=== PATIENT | male | born 1950 | race Caucasian/White ===

== ENCOUNTER 2020-02-13 11:01 | Outpatient (CLI) | payer MEDICARE, SELFPAY ==
--- NOTE | 2020-02-13 11:14 | XR_ITS ---
WS: [id number] KUB, 02/13/2020 Clinical Data: KIDNEY STONE Comparison: KUB, 05/20/2019 Findings: No abnormal intraabdominal masses or calcifications are seen. There is no dilatated small bowel or ev idence of obstruction. The aortobiiliac stent graft is noted. Bladder calculi are no longer present. There are no renal calc anirudh seen. XR/XR KUB [id number] Impression: Negative KUB.
== END 2020-02-13 11:02 | disposition home or self-care (01) ==
LOC: RAD 11:07 → RADWPI 11:08
PROVIDERS: Family Provider Family Medicine; PCP Nurse Practitioner Family; Visit Provider Urology
DX: N21.0 Calculus in bladder (principal)
CPT/HCPCS: 74018; 81001

== ENCOUNTER 2020-10-11 09:16 | Outpatient (CLI) | payer MEDICARE, SELFPAY ==
--- NOTE | 2020-10-11 09:30 | XR_ITS ---
WS: [id number] ABDOMEN: SUPINE FILM HISTORY: HX OF BLADDER STONE COMPARISON: 02/13/2020 Normal bowel gas pattern. Abdominal aortic and iliac artery stent graft is noted. Unchanged in positi on. Possible bladder calcification measuring 5.3 mm projecting over the coccyx. Right kidney: No renal or ureteral stone identified. Left kidney: No renal or ureteral stone identified. XR/XR KUB [id number] IMPRESSION: Possible 5.3 mm bladder calcification projecting over the coccyx.
== END 2020-10-11 09:17 | disposition home or self-care (01) ==
LOC: RAD 09:20
PROVIDERS: PCP Nurse Practitioner Family; Visit Provider Urology
DX: Z87.448 Personal history of other diseases of urinary system (principal)
CPT/HCPCS: 74018; 81003

== ENCOUNTER 2020-11-10 09:46 | Emergency (ER) | payer MEDICARE, SELFPAY ==
[2020-11-10 09:47] VITALS: BP 119/73; PULSE 66; RESP 18; TEMP 36.8; O2SAT 95; BMI 26.4
--- NOTE | 2020-11-10 09:58 | XR_ITS ---
WS: [id number] PORTABLE CHEST HISTORY: chest pain COMPARISON: None available. Marked pulmonary hyperexpansion. Large bullous changes in the upper lung correa. Crowding of the lung markings due to bullous disease in the lower lung correa. No dense consolidation or pneumonia. No pn eumothorax. No pleural effusion. Cardiac size: Normal. Mediastinum/Aorta: Mild atherosclerosis aorta. No osseous abnormality seen. XR/XR chest 1V portable [id number] IMPRESSION: Chronic bullous emphysematous disease. No pneumonia.
--- NOTE | 2020-11-10 09:58 | ECG_ITS ---
[facility] Test Date: 2020-11-10 Pat Name: Ladarius Lai Department: Room: Gender: Male Assistance Representative: : 1950 Requested By: Mohsen Olivares Order Number: [id number] Knox MD: Hortensia Tiwari M.D. Measurements Intervals [place] Rate: 64 P: 71 CT: 138 QRS: 58 QRSD: 89 T: 57 QT: 407 QTc: 423 Interpretive Statements SINUS RHYTHM No previous ECG available for comparison Electronically Signed On 11-10-2020 21:25:54 WARP BLEACHING VAT TENDER by Hortensia Tiwari M.D. [id number]
--- NOTE | 2020-11-10 09:59 | ED_ITS ---
HPI - Chest Pain General: Chief Complaint: Chest Pain Stated Complaint: CHEST PAIN, EXTREMITY PAIN Time Seen by Provider: 11/10/20 09:57 Source: patient Mode of arrival: ambulatory Limitations: no limitations History of Present Illness: HPI narrative: Patient comes in today with extremity pain. Patient reports that starting this morning when he went to get up he had increased pain going down his left leg. Patient has a history of back pain. Patient is also had a history of coronary artery disease, BPH, and hematuria. Patient does not complain of any chest pain at this time. Patient appears well. Patient has had stents placed for coronary artery disease. Patient also had a procedure done on his left carotid. Review of Systems General: Reports: 10 or more systems reviewed and unremarkable except in HPI and below Musc: Reports: other (Pain radiating down left leg.) [facility] ED PFSH: Medical History (Updated 11/10/20 @ 13:30 by NEHEMIAS Parsons) Acute cystitis Bladder stone BPH with obstruction/lower urinary tract symptoms Gross hematuria Urinary retention Surgical History Bladder calculi CYSTOLITHOLAPAXY H/O heart artery stent Family History Mother , AT AGE 82 ALZHEIMERS Alzheimer's dementia Father , AT AGE 82 OLD AGE No problems noted. Social History Smoking and tobacco status: current some day smoker Alcohol intake: current Alcohol intake frequency: few times a month Adopted: No Caregiver/support person: No Lives independently: No Household members: spouse Marital status: Current occupational status: retired History of recent travel: No Physical Exam Const: COMMON NORMALS: no acute distress and patient oriented x3 GENERAL APPEARANCE: cooperative HENMT: COMMON NORMALS: normocephalic and Normal external nose present HEAD & SCALP: normal to inspection and normocephalic NOSE: Normal external nose present MOUTH: Normal oral and palatal mucosa present Eye: GENERAL EYE: appearance normal, both eyes and all related structures Neck/C-Spine: COMMON NORMALS: full ROM Chest: COMMONS NORMALS: normal inspection of the chest Resp: COMMON NORMALS: normal respiratory effort EFFORT & INSPECTION: Yes able to speak in complete sentences Cardio: COMMON NORMALS: regular rate and regular rhythm RATE: regular rate RHYTHM: regular rhythm GI: COMMON NORMALS: non-tender Back/Pelvis: COMMON NORMALS: thoracic and lumbar spine normal to inspection Extremity: COMMON NORMALS: normal to inspection Neuro: COMMON NORMALS: patient oriented x3 and moves all extremities Psych: COMMON NORMALS: mental status grossly normal and cooperative Skin: COMMON NORMALS: no rashes or lesions noted GENERAL SKIN EXAM: no rashes or lesions noted Course ED course: 1206. Patient resting well reports some pain to the left knee. P atient reports pain exacerbates with flexion of the knee. Distal pulses are intact. We do note some anemia on the patient's lab work with some mild renal dysfunction. Patient does have a history of an aortic aneurysm that had a leak with repair 4 years ago. Patient and spouse is concerned that it may be leaking again. We will scan with a CTA of the chest abdomen and pelvis for further visualization and evaluation of aneurysm. Vital Signs: Vital signs: Vital Signs Temperature 98.2 F 11/10/20 09:47 Pulse Rate 60 11/10/20 13:12 Respiratory Rate 16 11/10/20 13:12 Blood Pressure 128/62 11/10/20 13:12 Pulse Oximetry 96 11/10/20 13:12 MDM - Chest Pain MDM Narrative: Medical decision making narrative: Patient comes in today for complaints of general body aches and pain. Patient also complains of weakness. On exam patient has normal range of motion of extremities. Patient does have some soreness in his left lower extremity. Pulses are intact bilaterally. Skin is warm and dry. Vital signs are normal. Patient does have a history of coronary artery disease, aortic aneurysm, BPH, and cystitis. Differential diagnosis includes urinary tract infection, ACS, sepsis, musculoskeletal pain, leaking aneurysm. CTA of the chest abdomen pelvis noted no changes from prior exam in April 2019. Urinalysis showed a significant amount of red blood cells and white blood cells in the urine. CBC showed anemia at 8.3 and 25.4, with thrombocytopenia with platelets of 38 and mild leukopenia with white blood cells of 3.9. Patient will need to follow with hematology for further evaluation and treatment. Case management request was placed, patient was agreeable to referral. Patient will follow up with Dr. Clarke regarding his urinary tract infection. Lab Data: Labs: Lab Results 11/10/20 11/10/2011/10/20 Range/Units 08:30 08:30 08:30 WBC Cancelled Corrected WBC Cancelled RBC Cancelled Hgb Cancelled Hct Cancelled MCV Cancelled MCH Cancelled MCHC Cancelled RDW Cancelled Plt Count Cancelled MPV Cancelled Gran % Cancelled Neut % (Auto) Cancelled Lymph % (Auto) Cancelled Davison % (Auto) Cancelled Eos % (Auto) Cancelled Baso % (Auto) Cancelled Neut # (Auto) Cancelled Lymph # (Auto) Cancelled Davison # (Auto) Cancelled Eos # (Auto) Cancelled Baso # (Auto) Cancelled Absolute Gran (aut o) Cancelled Nucleated RBC % (a uto) Cancelled Nucleated RBCs # Cancelled Sodium 139 (136-145) mmol/L Potassium 4.1 (3.5-5.1) mmol/L Chloride 105 (98-107) mmol/L Carbon Dioxide 21 L (22-29) mmol/L Anion Gap 17.1 (5-19) BUN 25 H (8-23) mg/dL Creatinine 1.3 H (0.7-1.2) mg/dL GFR Calculation Not Reportable Glucose 105 (65-115) mg/dL Calculated Osmolal ity 293 (285-295) mOsm/k g Lactic Acid (0.5-2.2) mmol/L Calcium 8.6 (8.5-10.5) mg/dL Magnesium 1.9 (1.7-2.3) mg/dL Total Bilirubin 0.7 (0.15-1.2) mg/dL AST 10 (0-40) U/L ALT 9 (0-41) U/L Alkaline Phosphata se 78 (40-130) IU/L Troponin T Gen 5 n g/L 34 H (0-15) ng/L Troponin T 120 Min [place] (0-15) ng/L Delta Troponin T (0-10) ABS# Total Protein 6.9 (6.6-8.7) g/dL Albumin 3.9 (3.5-5.2) g/dL Globulin 3.0 (1.3-4.6) g/dL Urine Color (Yellow) Urine Appearance (CLEAR) Urine pH (5-7) Ur Specific Gravit y (1.005-1.030) Urine Protein (Negative) Urine Glucose (UA) (Normal) Urine Ketones (Negative) Urine Blood (Negative) Urine Nitrate (Negative) Urine Bilirubin (Negative) Urine Urobilinogen (Negative) mg/dL Ur Leukocyte Sayda ase (Negative) Urine RBC (0-2) /hpf Urine WBC (0-5) /hpf Ur Squamous Epith Cells (0-5) /hpf Amorphous Sediment Urine Bacteria (NONE) /hpf Urine Mucus /hpf 11/10/20 11/10/20 11/10/20 Range/Units 11:20 11:40 11:40 WBC 3.9 L Corrected WBC RBC 2.57 L Hgb 8.3 L Hct 25.4 L MCV 98.8 H MCH 32.3 MCHC 32.7 RDW 18.3 H Plt Count 38 L MPV Gran % Neut % (Auto) 30.1 Lymph % (Auto) 44.2 Davison % (Auto) 24.4 Eos % (Auto) 0.3 Baso % (Auto) 1.0 Neut # (Auto) 1.17 L Lymph # (Auto) 1.7 Davison # (Auto) 1.0 H Eos # (Auto) 0.0 Baso # (Auto) 0.0 Absolute Gran (aut o) Nucleated RBC % (a uto) 0 Nucleated RBCs # 0.0 Sodium (136-145) mmol/L Potassium (3.5-5.1) mmol/L Chloride (98-107) mmol/L Carbon Dioxide (22-29) mmol/L Anion Gap (5-19) BUN (8-23) mg/dL Creatinine (0.7-1.2) mg/dL GFR Calculation Glucose (65-115) mg/dL Calculated Osmolal ity (285-295) mOsm/k g Lactic Acid (0.5-2.2) mmol/L Calcium (8.5-10.5) mg/dL Magnesium (1.7-2.3) mg/dL Total Bilirubin (0.15-1.2) mg/dL AST (0-40) U/L ALT (0-41) U/L Alkaline Phosphata se (40-130) IU/L Troponin T Gen 5 n g/L (0-15) ng/L Troponin T 120 Min [place] 33.94 H (0-15) ng/L Delta Troponin T -0.06 L (0-10) ABS# Total Protein (6.6-8.7) g/dL Albumin (3.5-5.2) g/dL Globulin (1.3-4.6) g/dL Urine Color Yellow (Yellow) Urine Appearance Sl hazy (CLEAR) Urine pH 5.0 (5-7) Ur Specific Gravit y 1.020 (1.005-1.030) Urine Protein Neg (Negative) Urine Glucose (UA) Norm (Normal) Urine Ketones Negative (Negative) Urine Blood Neg (Negative) Urine Nitrate Negative (Negative) Urine Bilirubin 1+ H (Negative) Urine Urobilinogen 1 H (Negative) mg/dL Ur Leukocyte Sayda ase 1+ H (Negative) Urine RBC 0-4 H (0-2) /hpf Urine WBC 25-40 H (0-5) /hpf Ur Squamous Epith Cells 0-4 H (0-5) /hpf Amorphous Sediment Not Reportable Urine Bacteria 1+ H (NONE) /hpf Urine Mucus Trace /hpf 11/10/ Range/Units 12:35 WBC Corrected WBC RBC Hgb Hct MCV MCH MCHC RDW Plt Count MPV Gran % Neut % (Auto) Lymph % (Auto) Davison % (Auto) Eos % (Auto) Baso % (Auto) Neut # (Auto) Lymph # (Auto) Davison # (Auto) Eos # (Auto) Baso # (Auto) Absolute Gran (aut o) Nucleated RBC % (a uto) Nucleated RBCs # Sodium (136-145) mmol/L Potassium (3.5-5.1) mmol/L Chloride (98-107) mmol/L Carbon Dioxide (22-29) mmol/L Anion Gap (5-19) BUN (8-23) mg/dL Creatinine (0.7-1.2) mg/dL GFR Calculation Glucose (65-115) mg/dL Calculated Osmolal ity (285-295) mOsm/k g Lactic Acid 0.9 (0.5-2.2) mmol/L Calcium (8.5-10.5) mg/dL Magnesium (1.7-2.3) mg/dL Total Bilirubin (0.15-1.2) mg/dL AST (0-40) U/L ALT (0-41) U/L Alkaline Phosphata se (40-130) IU/L Troponin T Gen 5 n g/L (0-15) ng/L Troponin T 120 Min [place] (0-15) ng/L Delta Troponin T (0-10) ABS# Total Protein (6.6-8.7) g/dL Albumin (3.5-5.2) g/dL Globulin (1.3-4.6) g/dL Urine Color (Yellow) Urine Appearance (CLEAR) Urine pH (5-7) Ur Specific Gravit y (1.005-1.030) Urine Protein (Negative) Urine Glucose (UA) (Normal) Urine Ketones (Negative) Urine Blood (Negative) Urine Nitrate (Negative) Urine Bilirubin (Negative) Urine Urobilinogen (Negative) mg/dL Ur Leukocyte Sayda ase (Negative) Urine RBC (0-2) /hpf Urine WBC (0-5) /hpf Ur Squamous Epith Cells (0-5) /hpf Amorphous Sediment Urine Bacteria (NONE) /hpf Urine Mucus /hpf EKG Data^: EKG 1: Attestation: I personally reviewed and interpreted this EKG as follows: (1003, normal sinus rhythm, rate 64, no ectopy, no ST elevation, no prior exam available at this time.) EKG 2: Attestation: I personally reviewed and interpreted this EKG as follows: (1235, normal sinus rhythm, regular rate at 60 bpm, no ectopy, no ST elevation, no change from prior exam.) Discharge Plan Discharge Patient Disposition: Home Clinical Impression: Cystitis Benign prostatic hyperplasia Qualifiers: Lower urinary tract symptom presence: symptoms present Lower urinary tract sy mptom detail: unspecified Qualified Code(s): N40.1 - Benign prostatic hyperplasia with lower urinary tract symptoms Anemia Qualifiers: Anemia type: unspecified type Qualified Code(s): D64.9 - Anemia, unspecified Condition: Stable Prescriptions: New cephalexin 500 mg capsule 500 mg PO Q6H 7 Days Qty: 28 RF: 0 No Action aspirin 81 mg Tablet,Chewable 81 mg PO DAILY@07 RF: 0 finasteride 5 mg tablet 5 mg PO DAILY@07 RF: 0 Discharge Orders: Discharge ED (Routine); Ordered 11/10/20 Ordered By: Mohsen Carlisle Referrals: Dee Pal FNP [Primary Care Provider] - Discharge Diet: Usual diet Discharge Activity: Increase activity as tolerated Patient Instructions: Anemia (ED) Activity Restrictions/Additional Instructions: Drink plenty of fluids. Follow-up with primary care or urologist for recheck on urine. Follow-up with primary care for further evaluation regarding anemia. It would be recommended that you have an endoscopy of the upper gastrointestinal tract and the colon, for evaluation of bleeding. Return to the emergency department for new concerns or worsening symptoms. Coding Level of Care Code ED Manager Transportation Planning for Lb Fwd Exam Comprehensive
[2020-11-10 10:04] VITALS: O2SAT 96
[2020-11-10] MEDS: HYDROcodone-acetaminophen 7.5-325 mg Tablet 1 TAB PO (10:11)
[2020-11-10 10:54] LABS: Alanine Aminotransferase 9 U/L (0-41); Albumin Level 3.9 g/dL (3.5-5.2); Alkaline Phosphatase 78 IU/L (40-130); Anion Gap 17.1 (5-19); Aspartate Amino Transferase 10 U/L (0-40); Blood Urea Nitrogen 25 mg/dL (8-23); Calcium 8.6 mg/dL (8.5-10.5); Carbon Dioxide 21 mmol/L (22-29); Chloride 105 mmol/L (98-107); Glucose 105 mg/dL (65-115); Magnesium 1.9 mg/dL (1.7-2.3); Osmolality Calculated 293 mOsm/kg (285-295); Potassium 4.1 mmol/L (3.5-5.1); Sodium 139 mmol/L (136-145); Total Bilirubin 0.7 mg/dL (0.15-1.2); Total Protein 6.9 g/dL (6.6-8.7)
[2020-11-10 10:56] LABS: Troponin T (5th) Once 34 ng/L (0-15)
[2020-11-10 11:42] VITALS: BP 106/59; PULSE 61; RESP 13; O2SAT 94
[2020-11-10 11:45] LABS: Eosinophils % 0.3 %; Hematocrit 25.4 % (42.0-52.0); Hemoglobin 8.3 g/dL (11.7-16.6); Lymphocytes # 1.7 10^3/uL (0.8-4.8); Lymphocytes % 44.2 %; Mean Corpuscular HGB Conc 32.7 g/dL (30.0-36.0); Mean Corpuscular Hemoglobin 32.3 pg (28.0-34.0); Mean Corpuscular Volume 98.8 fL (80-94); Monocytes % 24.4 %; Neutrophils # 1.17 10^3/uL (1.8-7.7); Neutrophils % 30.1 %; Nucleated Red Blood Cells % 0 %; Platelet Count 38 10^3/cmm (130-400); Red Blood Count 2.57 10^6/uL (4.1-5.3); Red Cell Distribution Width 18.3 % (12.1-15.1); White Blood Count 3.9 10^3/uL (4.0-10.0)
[2020-11-10 11:50] LABS: Slide Review Slide Review Perform
[2020-11-10 11:51] LABS: Add Urine Culture? Yes; Add Urine Microscopic? YES; Bacteria Urine 1+ /hpf; Bilirubin Urine 1+ (Negative); Blood Urine Neg (Negative); Glucose Urine UA Norm (Normal); Ketones Urine Negative (Negative); Leukocyte Esterase Urine 1+ (Negative); Mucus Urine TRACE /hpf; Nitrate Urine Negative (Negative); Protein Urine Neg (Negative); RBC Urine 0-4 /hpf (0-2); Squamous Epithelial Cell Urine 0-4 /hpf (0-5); Urine Appearance SL Hazy (CLEAR); Urine Color Yellow (Yellow); Urobilinogen Urine 1 mg/dL (Negative); WBC Urine 25-40 /hpf (0-5)
--- NOTE | 2020-11-10 12:04 | CT_ITS ---
WS: [id number] CTA CHEST, ABDOMEN AND PELVIS. HISTORY: Chest pain. History aortic aneurysm. TECHNIQUE: CT angiogram is performed through the chest, abdomen and pelvis. Study with and without co ntrast. Sagittal and coronal reformats have been submitted. MIP imaging also reviewed. All CT scans at [facility] use at least one of these dose optimization techniques: automated exposure c ontrol; mA and/or kV adjustment per patient size (includes targeted exams where dose is matched to cl inical indication); or iterative reconstruction. Contrast: Visipaque 95 cc IV. DLP: 2184.37 mGy.cm COMPARISON: 05/10/2019 Chest CTA: Mild atherosclerosis thoracic aorta. No aneurysm or dissection. Visualized pulmonary arter y is normal size. Normal size heart. No pericardial or pleural effusions. Severe bullous emphysema. T hickening of the interstitium in the lower lung correa. No pneumonia. No adenopathy. 7 mm noncalcifie d nodule RIGHT lower lobe unchanged since 05/10/2019. Additional area of pleural thickening in the cyndy tral RIGHT lung. Abdomen CT: Status post aortic stent graft in the abdominal aorta extending into the iliac arteries. Intraluminal enhancement with no endovascular leak appreciated. Contrast extends into the proximal co mmon iliac arteries. The aneurysm extends beyond the LEFT common iliac artery stent. This was also no brittany on the prior study. Prior study was done without IV contrast. Visualized early enhancement of the liver, spleen, gallbladder and adrenal glands negative. RIGHT bria al cysts. No obstruction. No GI tract obstruction. Pelvic CT: No free fluid in the pelvis. Markedly enlarged prostate gland. CT/CT angio chest abdomen pelvis IMPRESSION: 1. Status post endovascular stent grafting of the abdominal aorta. No aortic r upture or endovascular leak is appreciated. Similar appearance to the aorta as compared to the unenhanced study of 05/10/2019. 2. 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 3. No thoracic aortic dissection or aneurysm. 4. Severe emphysema. 5. Marked prostate enlargement.
[2020-11-10 12:11] VITALS: BP 110/59; PULSE 61; RESP 14; O2SAT 92
[2020-11-10 12:19] LABS: Troponin 5 2HR 33.94 ng/L (0-15)
[2020-11-10] MEDS: iodixanol 320 mg/mL 100mL Btl IV (12:25)
[2020-11-10 12:44] LABS: Troponin 5 2HR Delta -0.06 ABS# (0-10)
[2020-11-10 13:03] LABS: Lactic Sepsis W/Reflex 0.9 mmol/L (0.5-2.2)
[2020-11-10] MEDS: sodium chloride 0.9% 500 ML 999 ML IV (13:10)
[2020-11-10] MEDS: cefTRIAXone 1,000 MG in sodium chloride 0.9% (plus) 50 ML 100 MG IV (13:10)
[2020-11-10 13:12] VITALS: BP 128/62; PULSE 60; RESP 16; O2SAT 96
[2020-11-10 13:57] VITALS: BP 107/59; PULSE 64; RESP 17; O2SAT 97
--- NOTE | 2020-11-10 17:31 | ECG_ITS ---
[facility] Test Date: 2020-11-10 Pat Name: Ladarius Lai Department: Room: Gender: Male Legal Writing Professor: : 1950 Requested By: Mohsen Olivares Order Number: [id number] Abilio MD: Hortensia Tiwari M.D. Measurements Intervals [place] Rate: 60 P: 68 IN: 149 QRS: 59 QRSD: 88 T: 50 QT: 429 QTc: 430 Interpretive Statements SINUS RHYTHM Compared to ECG 11/10/2020 09:50:53 No significant changes Electronically Signed On 11-10-2020 21:31:36 INSURANCE AUDITOR by Hortensia Tiwari M.D. [email or web address] mississippi regional medical centerAgile Media Networkohiohealth van w[facility] hospital.[employer]/store/OM/[id number]
--- NOTE | 2020-11-11 09:26 | DCPLANNER ---
manager assurance had message to schedule a follow up appointment for patient with hematology. manager assurance called Gretta Plummer, transfer coordinator at [facility], left a voicemail for her to call case consultant back so that referral can be made.
--- NOTE | 2020-11-17 13:01 | DCPLANNER ---
manager banking called Gretta Plummer with oncology, patients information will be printed and reviewed. Clinic will call patient with appointment information.
--- NOTE | 2020-12-07 08:04 | DCPLANNER ---
Patient passes away.
== END 2020-11-10 13:57 | disposition home or self-care (01) ==
PROVIDERS: Emergency Provider Nurse Practitioner Family; PCP Nurse Practitioner Family
DX: N40.1 Benign prostatic hyperplasia with lower urinary tract symptoms (principal); D64.9 Anemia, unspecified; N30.90 Cystitis, unspecified without hematuria; Z79.82 Long term (current) use of aspirin; Z87.440 Personal history of urinary (tract) infections; F17.210 Nicotine dependence, cigarettes, uncomplicated
CPT/HCPCS: 12345; 36415; 71045; 71275; 74174; 80053; 81001; 83605; 83735; 84484; 85025; 87086; 93005; 96365; 99283; 99284; J0696; J7040; Q9967

== ENCOUNTER 2020-11-15 22:35 | Inpatient (IN) | payer MEDICARE, SELFPAY ==
[2020-11-15 22:39] VITALS: BP 141/80; PULSE 91; RESP 26; TEMP 37; O2SAT 95; BMI 26.4
--- NOTE | 2020-11-15 22:40 | ECG_ITS ---
[facility] Test Date: 2020-11-15 Pat Name: Ladarius Lai Department: Room: Gender: Male Central Supply Worker: : 1950 Requested By: Isabela Cagle Order Number: [id number] Knox MD: Hortensia Tiwari M.D. Measurements Intervals [place] Rate: 80 P: 46 VT: 99 QRS: 24 QRSD: 95 T: 48 QT: 372 QTc: 431 Interpretive Statements SINUS RHYTHM WITH SHORT VT INTERVAL WITH OCCASIONAL SUPRAVENTRICULAR PREMATURE COMPLEXES ST DEPRESSION, CONSIDER SUBENDOCARDIAL INJURY [0.1+ mV ST DEPRESSION] Compared to ECG 11/10/2020 12:51:31 Short VT interval now present ST (T wave) deviation now present Electronically Signed On 11-16-2020 23:45:30 VETERINARIAN EPIDEMIOLOGIST by Hortensia Tiwari M.D. [email or web address]Summayoch regional medical centerGertrudeohiohealth southeastern [facility] center.[employer]/store/OM/[id number]
--- NOTE | 2020-11-15 22:40 | XR_ITS ---
WS: [id number] Exam: XR chest 1V portable [id number] Date/Time of Exam: 11/15/2020 10:45 PM Reason For Exam: sob Comparison 11/10/2020. Changes of bullous emphysema with interstitial fibrotic changes in the lower lung zones. No consolida ting infiltrates or pneumothorax. No pleural effusion. Normal cardiomediastinal structures and bony e lements. XR/XR chest 1V portable [id number] IMPRESSION: 1. Bullous emphysema and chronic interstitial changes. 2. No consolidating pneumonia or pneumothorax.
--- NOTE | 2020-11-15 22:50 | W.ED.SOB ---
HPI - SOB/Dyspnea General: Chief Complaint: Shortness of Breath/Dyspnea Stated Complaint: SOB Time Seen by Provider: 11/15/20 22:37 Source: patient Mode of arrival: ambulatory Limitations: no limitations History of Present Illness: HPI Narrative: Ladarius is a 70-year-old male states that over the last 2 days he had shortness of breath with increasing shortness of breath this evening. Per EMS patient's pulse ox was in the 80s on room air and is currently on 3 L. He was given a breathing treatment Solu-Medrol in route. He states he had a cough as well and low-grade fevers. Denies any worsening improving factors. Denies any chest pain. Associated symptoms: Deny abdominal pain, chest pain, fever(s), nausea or vomiting Review of Systems Const: Denies: fever(s), chills, body aches or change in appetite Eyes: Denies: blurry vision or eye discomfort ENMT: Denies: throat pain or dental pain Card: Denies: chest pain Resp: Reports: dyspnea, non-productive cough and wheezing GI: Denies: abdominal pain, nausea, vomiting or diarrhea : Denies: dysuria Musc: Denies: neck pain or back pain Skin/Breast: Denies: rash Neuro: Denies: headache(s) Psych: Denies: depression Sinan/Lymph: Denies: easy bruising All/Imm: Denies: urticaria PFSH ED PFSH: Medical History Acute cystitis Bladder stone BPH with obstruction/lower urinary tract symptoms Gross hematuria Urinary retention Surgical History Bladder calculi CYSTOLITHOLAPAXY H/O heart artery stent Family History Mother , AT AGE 82 ALZHEIMERS Alzheimer's dementia Father , AT AGE 82 OLD AGE No problems noted. Social History Smoking and tobacco status: current some day smoker Alcohol intake: current Alcohol intake frequency: few times a month Adopted: No Caregiver/support person: No Lives independently: No Household members: spouse Marital status: Current occupational status: retired History of recent travel: No Physical Exam Const: COMMON NORMALS: no acute distress, patient oriented x3 and healthy appearing HENMT: COMMON NORMALS: normocephalic and atraumatic HEAD & SCALP: normocephalic and atraumatic Eye: COMMON NORMALS: Equal, round and reactive pupils present and EOMs intact bilaterally PUPIL: Yes Equal, round and reactive pupils present Neck/C-Spine: COMMON NORMALS: full ROM and supple Chest: COMMONS NORMALS: normal inspection of the chest and normal palpation of entire chest wall Resp: COMMON NORMALS: normal respiratory effort, No retractions and No use of accessory muscles AUSCULTATION: wheezes Cardio: COMMON NORMALS: regular rate, regular rhythm and No murmurs present (Cardio) RATE: regular rate RHYTHM: regular rhythm GI: COMMON NORMALS: Normal to inspection, nondistended, normoactive bowel sounds present, Soft to palpation, non-tender and no masses PALPATION: Yes Soft to palpation Extremity: COMMON NORMALS: normal to inspection and full ROM Neuro: COMMON NORMALS: patient oriented x3, moves all extremities and no focal motor deficits Psych: COMMON NORMALS: mental status grossly normal, Normal thought process present and cooperative THOUGHT PROCESS: Normal thought process present Skin: COMMON NORMALS: no rashes or lesions noted and no wounds GENERAL SKIN EXAM: no rashes or lesions noted Course Vital Signs: Vital signs: Vital Signs Temperature 98.6 F 11/15/20 22:39 Pulse Rate 85 11/16/20 01:43 Respiratory Rate 10 L 11/16/20 01:43 Blood Pressure 120/65 11/16/20 01:43 Pulse Oximetry 97 11/16/20 01:43 MDM - SOB/Dyspnea MDM Narrative: Medical decision making narrative: Ladarius presents here with dyspnea and does have an elevated BNP. Patient also has an elevated troponin. Patient is having no chest pain and no signs of STEMI at this time. Patient continues to have anemia that is worsened along with a lower platelet count. Patient was not given Lovenox here due to the low platelets. Patient second troponin went down from his first 1. I spoke to hospitalist will admit to the ICU. Patient had a CTA 6 days ago which showed no signs of PE. Lab Data: Labs: Lab Results 11/15/20 11/15/20 11/15/20 Range/Units 22:49 22:49 22:49 WBC 5.3 (4.0-10.0) 10^3/ uL RBC 2.41 L (4.1-5.3) 10^6/u L Hgb 7.7 L (11.7-16.6) g/dL Hct 23.9 L (42.0-52.0) % MCV 99.2 H (80-94) fL MCH 32.0 (28.0-34.0) pg MCHC 32.2 (30.0-36.0) g/dL RDW 19.0 H (12.1-15.1) % Plt Count 22 L* (130-400) 10^3/c mm MPV Not Reportable Lymph % (Auto) Not Reportable Hood % (Auto) Not Reportable Lymph # (Auto) Not Reportable Hood # (Auto) Not Reportable Total Counted 100 (0-100) Atypical Lymphs % 8.0 H (0-5) % Absolute Neutrophi ls 1.5 (1.4-6.5) 10^3/c mm Segmented Neutroph ils 28 % Abs Segm Neuts (Ma n) 1.5 L (1.6-7.1) 10/cmm Band Neutrophils 1.0 % Abs Band Neuts (Ma n) 0.1 (0.0-1.2) 10^3/c mm Lymphocytes (Manua l) 58 % Monocytes (Manual) 3.0 % Absolute Monocytes 0.2 (0.1-0.6) 10^3/c mm Eosinophils (Manua l) 0 % Absolute Eosinophi ls 0.0 (0.0-0.7) 10^3/c mm Basophils (Manual) 0.0 % Absolute Basophils 0.0 (0.0-0.2) 10^3/c mm Nucleated RBCs 2.0 H (0-1) /100WBC Platelet Estimate Decreased (Normal) Polychromasia 1+ H Hypochromasia 1+ H Anisocytosis 2+ H Microcytosis 2+ H Macrocytosis 1+ H PT 15.60 H (12.1-14.9) SECO NDS INR 1.20 (0.8-1.2) Specimen Type Sample Site ABG pH (7.35-7.45) ABG pCO2 (35-45) mmHg ABG pO2 (80.0-100.0) mmH g ABG HCO3 (22-26) mmol/L ABG Base Excess (-2.0-2.0) mmol/ L Douglas Test Hematocrit (42-52) % Hgb O2 Saturation (95-100) % Carboxyhemoglobin (0.4-20.1) %THgb Methemoglobin (0.4-1.5) % Total Hemoglobin (14-18) g/dL O2 Delivery Device O2 Liters/Min % Electric Brain Wave Equipment Mechanic ID Sodium 134 L (136-145) mmol/L Potassium 4.2 (3.5-5.1) mmol/L Chloride 98 (98-107) mmol/L Carbon Dioxide 22 (22-29) mmol/L Anion Gap 18.2 (5-19) BUN 61 H (8-23) mg/dL Creatinine 1.6 H (0.7-1.2) mg/dL GFR Calculation Not Reportable Glucose 120 H (65-115) mg/dL Calculated Osmolal ity 296 H (285-295) mOsm/k g Calcium 8.9 (8.5-10.5) mg/dL Total Bilirubin 0.5 (0.15-1.2) mg/dL AST 39 (0-40) U/L ALT 25 (0-41) U/L Alkaline Phosphata se 72 (40-130) IU/L Troponin T Baselin e (0-15) ng/L Troponin T 120 Min [place] (0-15) ng/L Delta Troponin T (0-10) ABS# NT-Pro-B Natriuret Pep 8026 H (0-125) pg/mL Total Protein 7.0 (6.6-8.7) g/dL Albumin 3.3 L (3.5-5.2) g/dL Globulin 3.7 (1.3-4.6) g/dL SARS-CoV-2 Ag (Rap id) (Negative) 11/15/20 11/15/20 11/15/20 Range/Units 22:49 22:49 23:50 WBC (4.0-10.0) 10^3/ uL RBC (4.1-5.3) 10^6/u L Hgb (11.7-16.6) g/dL Hct (42.0-52.0) % MCV (80-94) fL MCH (28.0-34.0) pg MCHC (30.0-36.0) g/dL RDW (12.1-15.1) % Plt Count (130-400) 10^3/c mm MPV Lymph % (Auto) Hood % (Auto) Lymph # (Auto) Hood # (Auto) Total Counted (0-100) Atypical Lymphs % (0-5) % Absolute Neutrophi ls (1.4-6.5) 10^3/c mm Segmented Neutroph ils % Abs Segm Neuts (Ma n) (1.6-7.1) 10/cmm Band Neutrophils % Abs Band Neuts (Ma n) (0.0-1.2) 10^3/c mm Lymphocytes (Manua l) % Monocytes (Manual) % Absolute Monocytes (0.1-0.6) 10^3/c mm Eosinophils (Manua l) % Absolute Eosinophi ls (0.0-0.7) 10^3/c mm Basophils (Manual) % Absolute Basophils (0.0-0.2) 10^3/c mm Nucleated RBCs (0-1) /100WBC Platelet Estimate (Normal) Polychromasia Hypochromasia Anisocytosis Microcytosis Macrocytosis PT (12.1-14.9) SECO NDS INR (0.8-1.2) Specimen Type Arterial Sample Site Radial, right ABG pH 7.44 (7.35-7.45) ABG pCO2 32.2 L (35-45) mmHg ABG pO2 72.9 L (80.0-100.0) mmH g ABG HCO3 21.8 L (22-26) mmol/L ABG Base Excess -1.9 (-2.0-2.0) mmol/ L Douglas Test Pos Hematocrit 28.8 L (42-52) % Hgb O2 Saturation 93.0 L (95-100) % Carboxyhemoglobin 1.8 (0.4-20.1) %THgb Methemoglobin 0.4 (0.4-1.5) % Total Hemoglobin 9.4 L (14-18) g/dL O2 Delivery Device Nc O2 Liters/Min 3.5 % Electric Brain Wave Equipment Mechanic ID ellpe Sodium (136-145) mmol/L Potassium (3.5-5.1) mmol/L Chloride (98-107) mmol/L Carbon Dioxide (22-29) mmol/L Anion Gap (5-19) BUN (8-23) mg/dL Creatinine (0.7-1.2) mg/dL GFR Calculation Glucose (65-115) mg/dL Calculated Osmolal ity (285-295) mOsm/k g Calcium (8.5-10.5) mg/dL Total Bilirubin (0.15-1.2) mg/dL AST (0-40) U/L ALT (0-41) U/L Alkaline Phosphata se (40-130) IU/L Troponin T Baselin e 1197 H* (0-15) ng/L Troponin T 120 Min [place] (0-15) ng/L Delta Troponin T (0-10) ABS# NT-Pro-B Natriuret Pep (0-125) pg/mL Total Protein (6.6-8.7) g/dL Albumin (3.5-5.2) g/dL Globulin (1.3-4.6) g/dL SARS-CoV-2 Ag (Rap id) Negative (Negative) 11/16/20 Range/Units 00:40 WBC (4.0-10.0) 10^3/ uL RBC (4.1-5.3) 10^6/u L Hgb (11.7-16.6) g/dL Hct (42.0-52.0) % MCV (80-94) fL MCH (28.0-34.0) pg MCHC (30.0-36.0) g/dL RDW (12.1-15.1) % Plt Count (130-400) 10^3/c mm MPV Lymph % (Auto) Hood % (Auto) Lymph # (Auto) Hood # (Auto) Total Counted (0-100) Atypical Lymphs % (0-5) % Absolute Neutrophi ls (1.4-6.5) 10^3/c mm Segmented Neutroph ils % Abs Segm Neuts (Ma n) (1.6-7.1) 10/cmm Band Neutrophils % Abs Band Neuts (Ma n) (0.0-1.2) 10^3/c mm Lymphocytes (Manua l) % Monocytes (Manual) % Absolute Monocytes (0.1-0.6) 10^3/c mm Eosinophils (Manua l) % Absolute Eosinophi ls (0.0-0.7) 10^3/c mm Basophils (Manual) % Absolute Basophils (0.0-0.2) 10^3/c mm Nucleated RBCs (0-1) /100WBC Platelet Estimate (Normal) Polychromasia Hypochromasia Anisocytosis Microcytosis Macrocytosis PT (12.1-14.9) SECO NDS INR (0.8-1.2) Specimen Type Sample Site ABG pH (7.35-7.45) ABG pCO2 (35-45) mmHg ABG pO2 (80.0-100.0) mmH g ABG HCO3 (22-26) mmol/L ABG Base Excess (-2.0-2.0) mmol/ L Douglas Test Hematocrit (42-52) % Hgb O2 Saturation (95-100) % Carboxyhemoglobin (0.4-20.1) %THgb Methemoglobin (0.4-1.5) % Total Hemoglobin (14-18) g/dL O2 Delivery Device O2 Liters/Min % Electric Brain Wave Equipment Mechanic ID Sodium (136-145) mmol/L Potassium (3.5-5.1) mmol/L Chloride (98-107) mmol/L Carbon Dioxide (22-29) mmol/L Anion Gap (5-19) BUN (8-23) mg/dL Creatinine (0.7-1.2) mg/dL GFR Calculation Glucose (65-115) mg/dL Calculated Osmolal ity (285-295) mOsm/k g Calcium (8.5-10.5) mg/dL Total Bilirubin (0.15-1.2) mg/dL AST (0-40) U/L ALT (0-41) U/L Alkaline Phosphata se (40-130) IU/L Troponin T Baselin e (0-15) ng/L Troponin T 120 Min [place] 1078 H (0-15) ng/L Delta Troponin T -119 L (0-10) ABS# NT-Pro-B Natriuret Pep (0-125) pg/mL Total Protein (6.6-8.7) g/dL Albumin (3.5-5.2) g/dL Globulin (1.3-4.6) g/dL SARS-CoV-2 Ag (Rap id) (Negative) EKG Data^: EKG 1: Attestation: I personally reviewed and interpreted this EKG as follows: EKG Interpretation Date: 11/15/20 EKG interpretation time: 23:56 Interpretation: nsr hr [address] or t wave abnormalities qrs 95 qtc 408 Critical Care Time Critical Care Time: Critical Care Time: Yes Total Critical Care Time: 36 Attestation: This case had a high probability of a clinically significant, sudden, or life threatening deterioration of this patient's condition which required my full and direct attention, intervention and personal management. Discharge Plan Discharge Admit Provider: Mily Murillo Coding Level of Care Code ED Delivery Representative for Chg Fwd Exam Comprehensive
[2020-11-15 23:14] VITALS: BP 141/80; PULSE 81; RESP 16; O2SAT 93
[2020-11-15 23:22] LABS: SARS Covid-2 Antigen Negative (Negative)
[2020-11-15 23:36] LABS: Hematocrit 23.9 % (42.0-52.0); Hemoglobin 7.7 g/dL (11.7-16.6); Mean Corpuscular HGB Conc 32.2 g/dL (30.0-36.0); Mean Corpuscular Volume 99.2 fL (80-94); Red Blood Count 2.41 10^6/uL (4.1-5.3); White Blood Count 5.3 10^3/uL (4.0-10.0)
[2020-11-15 23:41] LABS: Alanine Aminotransferase 25 U/L (0-41); Albumin Level 3.3 g/dL (3.5-5.2); Alkaline Phosphatase 72 IU/L (40-130); Anion Gap 18.2 (5-19); Aspartate Amino Transferase 39 U/L (0-40); Blood Urea Nitrogen 61 mg/dL (8-23); Calcium 8.9 mg/dL (8.5-10.5); Carbon Dioxide 22 mmol/L (22-29); Chloride 98 mmol/L (98-107); Globulin 3.7 g/dL (1.3-4.6); Glucose 120 mg/dL (65-115); NT Pro B Type Natriuretic Pept 8026 pg/mL (0-125); Osmolality Calculated 296 mOsm/kg (285-295); Potassium 4.2 mmol/L (3.5-5.1); Sodium 134 mmol/L (136-145); Total Bilirubin 0.5 mg/dL (0.15-1.2)
[2020-11-15 23:44] VITALS: BP 141/83; PULSE 88; RESP 20; O2SAT 100
[2020-11-15 23:53] LABS: ABG PCO2 32.2 mmHg (35-45); ABG PH Result 7.44 (7.35-7.45); Arterial Blood Gas Hematocrit 28.8 % (42-52); Base Excess ABG -1.9 mmol/L (-2.0-2.0); Blood Gas Allen Test Pos; Blood Gas LPM 3.5 %; Blood Gas Sample Site Radial, right; Blood Gas Sample Type Arterial; Carboxyhemoglobin 1.8 %THgb (0.4-20.1); HCO3 ABG 21.8 mmol/L (22-26); Methemoglobin 0.4 % (0.4-1.5); Oxygen Device NC; PO2 ABG 72.9 mmHg (80.0-100.0); Total Hemoglobin 9.4 g/dL (14-18)
[2020-11-16] VITALS (47 sets, daily range): BP systolic 85–150; BP diastolic 47–88; PULSE 60–96; RESP 10–36; TEMP 36.5–37.4; O2SAT 90–99
[2020-11-16 00:08] LABS: Platelet Count 22 10^3/cmm (130-400)
[2020-11-16 00:09] LABS: Absolute Segmented Neutrophil 1.5 10/cmm (1.6-7.1); Band Neutrophils Absolute 0.1 10^3/cmm (0.0-1.2); Lymphocytes 58 %; Segmented Neutrophils 28 %; Total Cells Counted 100 (0-100)
[2020-11-16 00:10] LABS: Absolute Neutrophil 1.5 10^3/cmm (1.4-6.5); Anisocytosis 2+; Eosinophils 0 %; Hypochromasia 1+; Macrocytosis 1+; Microcytosis 2+; Monocytes Absolute 0.2 10^3/cmm (0.1-0.6); Platelet Estimate Decreased (Normal); Polychromasia 1+
[2020-11-16] MEDS: FUROsemide 10 mg/mL SDV 4mL 40 MG IVP (00:16)
[2020-11-16 00:48] LABS: Troponin(5th) Baseline 1197 ng/L (0-15)
--- NOTE | 2020-11-16 00:51 | CTR_ITS ---
PROCEDURE INFORMATION: Exam: CT Angiography Chest With Contrast Exam date and time: 11/16/2020 12:55 AM Age: 70 years old Clinical indication: Dyspnea; Additional info: SOB TECHNIQUE: Imaging protocol: Computed tomographic angiography of the chest with intravenous contrast. 3D rendering (Not supervised by radiologist): MIP and/or 3D reconstructed images were created by the technologist. Radiation optimization: All CT scans at this facility use at least one of these dose optimization techniques: automated exposure control; mA and/or kV adjustment per patient size (includes targeted exams where dose is matched to clinical indication); or iterative reconstruction. Contrast material: VISI; Contrast volume: 95 ml; Contrast route: INTRAVENOUS (IV); COMPARISON: CT angio chest abdomen pelvis 11/10/2020 12:11 PM RADIATION DOSE METRICS: Total DLP (mGy-cm): 651.37 FINDINGS: Pulmonary arteries: Continued marked attenuation of the upper lobe pulmonary arteries. Still no central or segmental pulmonary embolus. No suggestion of a subsegmental embolus. Aorta: Continued atherosclerosis. Still no thoracic aortic aneurysm or dissection. 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 Lungs: Continued severe bullous emphysema with marked upper lobe predominance. Hyperinflation of the lungs again evident. Interval appearance of several small patchy densities in each lung, the largest area in the left lower lobe along bronchi having no defined margins. Slight stranding now evident in the right middle lobe along the right hemidiaphragm, also. Continued slight atelectasis in the posterior right lower lobe. No change in the 10 mm noncalcified nodule in the lateral aspect of the lower right upper lobe (image 31 of series 601). No apparent change in the 9 mm noncalcified nodule in the posterior right lower lobe (image 63 of series 602). Continued very small calcified granuloma far inferiorly in the anterior right upper lobe. Pleural space: Still no pneumothorax or pleural effusion. Heart: Still no cardiomegaly or pericardial effusion. Lymph nodes: No significant change in the mildly enlarged pretracheal node. Small calcified node in the right lower hilum still likely. No interval enlarged nodes. Liver: Replaced right hepatic artery again evident. Kidneys and ureters: Continued presence of 3 prominent homogeneous water density masses arising from the right upper kidney, the largest measuring about 5.4 cm. Current suggestion of a tiny stone in the left kidney on image 597 of series 2, although arterial calcification not excluded. No hydronephrosis. Bones/joints: Old compression fractures again evident. Continued degeneration of a few discs. Right glenohumeral joint degeneration again evident. Old left clavicle fracture more apparent previously. Old left rib fractures again evident, with an almost complete synostosis between 2 of the upper left rib fractures as before. Soft tissues: No acute finding. CT/CT angio chest PE protcl [id number] IMPRESSION: 1. No apparent pulmonary embolus. Continued marked 10 UA qureshi of the upper lobe pulmonary arteries by the severe bullous emphysema. 2. Interval appearance of several small patchy densities in the lungs, the largest area in the left lower lobe along bronchi. Early infectious disease felt to be conceivable. No change in the 9 mm and 10 mm noncalcified nodules in the right lung. For patients at low risk (minimal or absent history of smoking and of other known risk factors), recommend CT Chest at 3-6 months, then consider CT Chest at 18-24 months. For patients at high risk (history of smoking or of other known risk factors), recommend CT Chest at 3-6 months, then CT Chest at 18-24 months. (Reference: Sylvia) 3. 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 4. Interval appearance of the suggestion of a tiny left renal stone. Continued presence of 3 right renal masses consistent with simple cysts. 5. Chronic bony abnormalities and other findings detailed above. COMMENTS: Consistent with the [place] [employer]'s Incidental Findings Committee white paper (J Am Varun Radiol 2018): Any incidental renal lesion less than 1 cm or classified as too small to characterize, or any incidental cystic renal lesion characterized as simple-appearing, is likely benign. No follow-up imaging is recommended for these lesions per consensus recommendations based on imaging criteria. REFERENCES: Sylvia Arnold, et al. Guidelines for Management of Incidental Pulmonary Nodules Detected on CT Images: From the Fleischner Society 2017. Radiology. 2017;284(1):228-243. Radiation Dose CTDIVOL = (mGy): DLP = 651.37 (mGy-cm)
[2020-11-16] MEDS: iodixanol 320 mg/mL 100mL Btl IV (01:23)
[2020-11-16 01:39] LABS: Troponin 5 2HR 1078 ng/L (0-15); Troponin 5 2HR Delta -119 ABS# (0-10)
--- NOTE | 2020-11-16 01:40 | P.HP_ITS ---
Providers/Chief Complaint Admitting Physician: Mily Murillo MD Primary Care Provider: NEHEMIAS Tom Chief Complaint: SOB History of Present Illness Ladarius Lai is a 70 year old male who has history of BPH, status post cystolitholapaxy, abdominal aortic aneurysm repair with graft, left carotid endarterectomy presented today with chief complaint of worsening shortness of breath. Patient is stating that he has not been able to urinate in last 3 days, that is bothering him and that is why he is in the hospital on top of that he is endorsing worsening shortness of breath which he feels on climbing stairs and any kind of exertional activity. No active chest pain, but endorsing orthopnea and PND, patient is not a good historian. He is stating that he always gets sh ort of breath and climbing stairs makes it worse. No recent fever, nausea, vomiting, blood in stool hematuria hemoptysis hematemesis. Diagnosis in the ER revealed anemia, thrombocytopenia no active bleeding noticed, troponin significantly greater than 1000, ST depression in lateral leads with T wave inversion patient is chest pain-free not complaining of any symptoms at all other than obstructive uropathy. Covid antigen has been requested, BNP 8000 but clinically does not look fluid overloaded. CTA ruled out PE, patient was requiring 4 L nasal cannula oxygen supplementation. Small patchy density in the lung noticed in left lower lobe, patient is not septic. Previous record were reviewed which showed that he had gross hematuria for which he underwent cystolitholapaxy, at home he is taking finasteride and aspirin Review of Systems Const: Reports: chills and body aches; Denies: fever(s) Eyes: Denies: change in vision ENMT: Denies: throat pain Card: Reports: dyspnea on exertion and orthopnea; Denies: chest pain or swelling of feet/ankles Resp: Reports: dyspnea and non-productive cough GI: Denies: abdominal pain, bloating, excessive flatus, change in bowel habits, hematochezia or melena : Denies: flank pain Musc: Denies: neck pain or back pain Skin/Breast: Reports: lesions; Denies: rash Neuro: Denies: dizziness or behavioral changes Psych: Reports: depression; Denies: anxiety Endo: Denies: polyuria Sinan/Lymph: Reports: easy bleeding and purpura; Denies: easy bruising All/Imm: Denies: urticaria Medications/Allergies Home Medications Medication Instructions Recorded Confirmed Last Taken Type aspirin 81 mg PO DAILY@07 11/10/20 11/16/20 11/15/20 07:00 History cephalexin 500 mg PO Q6H 7 Days #28 cap 11/10/20 11/16/20 11/15/20 07:00 Rx finasteride 5 mg PO DAILY@07 11/10/20 11/16/20 11/15/20 07:00 History Allergies Allergy/AdvReac Type Severity Reaction Status Date / Time No Known Allergies Allergy Unverified 10/11/20 09:59 PFSH Acute PFSH: Medical History Acute cystitis Bladder stone BPH with obstruction/lower urinary tract symptoms Gross hematuria Urinary retention Surgical History Bladder calculi CYSTOLITHOLAPAXY H/O heart artery stent History of left-sided carotid endarterectomy History of repair of aneurysm of abdominal aorta using endovascular stent graft Family History Mother , AT AGE 82 ALZHEIMERS Alzheimer's dementia Father , AT AGE 82 OLD AGE No problems noted. Social History Smoking and tobacco status: current some day smoker Alcohol intake: current Alcohol intake frequency: few times a month Adopted: No Caregiver/support person: No Lives independently: No Household members: spouse Marital status: Current occupational status: retired History of recent travel: No Vitals/I&O/Wt Last Vital Signs Temp 98.6 F 11/15/20 22:39 Pulse 88 11/16/20 01:14 Resp 18 11/16/20 01:14 BP 144/82 11/16/20 01:14 Pulse Ox 97 11/16/20 01:14 Weight last 48 hrs Weight 88.451 kg Physical Exam Narrative: EXAM NARRATIVE: Pleasant elderly male Does not look fluid overloaded Currently saturating 91% on 4 L nasal cannula no acute respite distress NSTEMI follow-up physician S1, S2 no murmur appreciated No active sign of fluid overload Abdomen soft nontender hypogastric area tenderness secondary to urine retention Bilateral breath sound without adventitious rhonchi or crackles Current hemodynamics are normal No active bleeding noticed Lower extremity multiple petechiae and purpura No active bleeding noted He is awake alert oriented x3 GCS 15 no neurological deficit I was not able to appreciate splenomegaly or hepatomegaly No active chest pain Data : 11/15/20 22:49 11/15/20 22:49 A&P Assessment and plan (1) Benign prostatic hyperplasia: Status: Acute Qualifiers: Lower urinary tract symptom detail: unspecified Lower urinary tract symptom presence: symptoms present Qualified Code(s): N40.1 - Benign prostatic hyperplasia with lower urinary tract symptoms (2) Anemia: Status: Acute Qualifiers: Anemia type: unspecified type Qualified Code(s): D64.9 - Anemia, unspecified (3) Thrombocytopenia: Status: Acute (4) NSTEMI (non-ST elevated myocardial infarction): Status: Acute Additional A&P Information NSTEMI: No active chest pain, EKG showing T wave inversion ST depression in anterolateral leads Significant delta troponin, considering thrombocytopenia I would not start him on anticoagulant however will start aspirin and Plavix dual antiplatelet therapy for now he has history of carotid endarterectomy and abdominal aortic aneurysm repair I will start him on lisinopril, atorvastatin and metoprolol succinate as well Request echo in the morning to monitor wall motion abnormality, consider cardiology consult for further assistance in management in the morning Anemia and thrombocytopenia Patient has used Keflex No hepatosplenomegaly, does not drink alcohol, history of gross hematuria secondary to bladder stone I will check B12 level his anemia is macrocytic No active site of bleeding noted Thrombocytopenia with multiple petechia purpura of lower extremities Monitor closely he has not received heparin in the last 90 days, my differential for hiT will be low however will rule it out Due to these concerning findings I will monitor him in ICU, he is at risk of bleeding secondary to thrombocytopenia BPH: Has obstructive uropathy, will place Medrano catheter for accurate urine output Denying active hematuria Goals of care discussed with the patient: Full code Cardiac diet DVT prophylaxis SCD not a candidate of anticoagulant secondary to thrombocytopenia Attestations Medical Necessity Statement*: Anticipating stay in the hospital for management of ACS and thrombocytopenia Time Spent in Patient Care: (>than 50% of time spent in counselling and/or direct pt care on unit) . 50mins Coding Level of Care Code Acute Costing Manager for Chg Fwd Diagnoses Benign prostatic hyperplasia N40.1 Lower urinary tract symptom detail: unspecified Lower urinary tract symptom presence: symptoms present Anemia D64.9 Anemia type: unspecified type Thrombocytopenia D69.6 NSTEMI (non-ST elevated myocardial infarction) I21.4
--- NOTE | 2020-11-16 02:00 | ECG_ITS ---
[facility] Test Date: 2020-11-16 Pat Name: Ladarius Lai Department: Room: [facility] Gender: Male Research Interviewer: : 1950 Requested By: Isabela Cagle Order Number: [id number] Abilio MD: Hortensia Tiwari M.D. Measurements Intervals [place] Rate: 112 P: 64 [place]: 141 QRS: 53 QRSD: 93 T: 66 QT: 400 QTc: 547 Interpretive Statements SINUS TACHYCARDIA WITH FREQUENT SUPRAVENTRICULAR PREMATURE COMPLEXES MODERATE ST DEPRESSION [0.05+ mV ST DEPRESSION] INTERPRETATION BASED ON A DEFAULT AGE OF 40 YEARS Compared to ECG 11/15/2020 23:56:06 Sinus rhythm no longer present Short [place] interval no longer present ST (T wave) deviation still present Electronically Signed On 11-17-2020 0:00:54 JOURNAL ENTRY AUDIT CLERK by Hortensia Tiwari M.D. [email or web address]
--- NOTE | 2020-11-16 02:03 | USCV_ITS ---
Ladarius Lai Age: 70 Gender: M : 1950 Exam Date: 11/16/2020 06:56 Ordering Phys: Mily Murillo MD Technologist: Yoselin Blake Exam Location: [facility] Indication: CHEST PAIN BP: 117 / 69 HR: 71 Rhythm: Sinus Technical Quality: Adequate MEASUREMENTS (Male / Female) Normal Values 2D ECHO LV Diastolic Diameter PLAX 4.5 cm 4.2 - 5.9 / 3.9 - 5.3 cm LV Systolic Diameter PLAX 3.7 cm LV Chamber Size 3.6 cm IVS Diastolic Thickness 1.2 cm 0.6 - 1.0 / 0.6 - 0.9 cm IVS Systolic Thickness 1.6 cm LVPW Diastolic Thickness 1.4 cm 0.6 - 1.0 / 0.6 - 0.9 cm LVPW Systolic Thickness 1.5 cm RV Chamber Size 2.8 cm LVOT Diameter 2.0 cm LV Ejection Fraction 2D Teich 38.8 % LV Ejection Fraction MOD 2C 69.4 % LV Ejection Fraction 2C AL 68.3 % LA Diameter 3.0 cm LA Width 3.5 cm LA Height 3.8 cm RA Width 4.3 cm RA Height 3.7 cm Aorta at Sinotubular Diameter 3.9 cm M-MODE LV Diastolic Diameter MM 4.2 cm 4.2 - 5.9 / 3.9 - 5.3 cm LV Systolic Diameter MM 2.7 cm LV Ejection Fraction MM Teich 66.9 % IVS Diastolic Thickness MM 1.4 cm 0.6 - 1.0 / 0.6 - 0.9 cm IVS Systolic Thickness MM 1.3 cm LVPW Diastolic Thickness MM 1.8 cm 0.6 - 1.0 / 0.6 - 0.9 cm LVPW Systolic Thickness MM 1.3 cm RV Diastolic Diameter MM 1.7 cm Aortic Annulus Diameter 4.1 cm LA Ao Ratio MM 0.8 MV E Point Septal Separation 0.9 cm DOPPLER AV Peak Velocity 161.0 cm/s LVOT Peak Velocity 75.0 cm/s AV Area Cont Eq vti 1.8 cm squared AV Area Cont Eq pk 1.5 cm squared MV Area PHT 2.8 cm squared Mitral E to A Ratio 0.7 MV E' Velocity 31.5 cm/s Mitral E to MV E' Ratio 7.4 Mitral E to LV E' Lateral Ratio 6.4 Mitral E to LV E' Septal Ratio 9.0 TR Peak Velocity 157.8 cm/s TR Peak Gradient 10.0 mmHg TR Mean Velocity 114.5 cm/s TR Mean Gradient 5.7 mmHg TR Velocity Time Integral 40.1 cm TV Peak E Velocity 45.0 cm/s Right Atrial Pressure 3.0 mmHg Pulmonary Artery Systolic Pressu 13.0 mmHg PV Peak Velocity 62.0 cm/s RV Acceleration Time 0.1 s RV Ejection Time 0.3 s RV AcT/ET 0.4 FINDINGS Left Ventricle Normal left ventricular size, systolic function and wall thickness, with no regional wall motion abnormalities. Left ventricular ejection fraction is estimated at 60 %. Abnormal diastolic function. Right Ventricle Normal right ventricular size and systolic function. Right ventricular systolic pressure 13 mmHg. Right Atrium Normal right atrial size. Left Atrium Normal left atrial size. Mitral Valve Thickened mitral valve. Mild mitral annular calcification. No mitral valve stenosis. Trace mitral valve regurgitation. Aortic Valve Thickened aortic valve. Aortic valve sclerosis without stenosis. Trace aortic valve regurgitation. Tricuspid Valve Structurally normal tricuspid valve. Trace tricuspid valve regurgitation. Pulmonic Valve Pulmonic valve not well visualized. Trace pulmonary valve regurgitation. Pericardium No pericardial effusion. Aorta Mildly dilated aortic root measured at 42 mm. Normal-sized inferior vena cava. CONCLUSIONS 1. Normal left ventricular size, systolic function and wall thickness, with no regional wall motion abnormalities. Left ventricular ejection fraction is estimated at 60 %. Abnormal diastolic function. 2. Normal right ventricular size and systolic function. 3. No significant valvular abnormality. 4. Normal pulmonary artery pressure. 5. No prior similar studies to compare. Criselda Rosenbaum MD (Electronically Signed) Final Date: 16 November 2020 16:51 S
--- NOTE | 2020-11-16 06:00 | ECG_ITS ---
[facility] Test Date: 2020-11-16 Pat Name: Ladarius Lai Department: Room: ICU09 Gender: Male Crop Supervisor: : 1950 Requested By: Isabela Cagle Order Number: [id number] Abilio MD: Hortensia Tiwari M.D. Measurements Intervals [place] Rate: 139 P: PA: QRS: 55 QRSD: 94 T: 33 QT: 314 QTc: 479 Interpretive Statements ATRIAL FIBRILLATION WITH RAPID VENTRICULAR RESPONSE NONSPECIFIC ST & T-WAVE ABNORMALITY ABNORMAL RHYTHM ECG Compared to ECG 11/16/2020 03:23:51 T-wave abnormality now present Sinus tachycardia no longer present ST (T wave) deviation no longer present Electronically Signed On 11-17-2020 0:01:21 STRAIGHT TOOTH GEAR GENERATOR OPERATOR by Hortensia Tiwari M.D. [email or web address] [email or web address] [facility] specialty [facility] [id number]
[2020-11-16] MEDS: finasteride 5 mg Tablet PO (06:14)
[2020-11-16] MEDS: aspirin 81 mg Chew Tablet PO (06:14)
[2020-11-16 07:15] LABS: Basophils # 0.1 10^3/uL (0.0-0.1); Basophils % 1.9 %; Lymphocytes # 1.9 10^3/uL (0.8-4.8); Lymphocytes % 44.4 %; Mean Corpuscular HGB Conc 32.2 g/dL (30.0-36.0); Mean Corpuscular Hemoglobin 31.8 pg (28.0-34.0); Monocytes % 23.1 %; Neutrophils # 1.31 10^3/uL (1.8-7.7); Neutrophils % 30.6 %; Nucleated Red Blood Cells % 0.9 %; Red Blood Count 2.01 10^6/uL (4.1-5.3); Red Cell Distribution Width 18.8 % (12.1-15.1); White Blood Count 4.3 10^3/uL (4.0-10.0)
[2020-11-16 07:38] LABS: Blood Urea Nitrogen 53 mg/dL (8-23); Calcium 8.4 mg/dL (8.5-10.5); Carbon Dioxide 23 mmol/L (22-29); Chloride 100 mmol/L (98-107); Glucose 148 mg/dL (65-115); Osmolality Calculated 299 mOsm/kg (285-295); Sodium 136 mmol/L (136-145)
[2020-11-16 07:40] LABS: Iron 84 ug/dL (59-158); Percent Saturation 63.6 % (20-50); Total Iron Binding Capacity 132 mcg/dl; Unsaturated Iron Binding 48 ug/dL (112-347)
[2020-11-16 07:52] LABS: Ferritin 3826 ng/mL (30-400)
[2020-11-16 07:56] LABS: Vitamin B12 1106 pg/mL (232-1245)
[2020-11-16 08:01] LABS: Hematocrit 19.9 % (42.0-52.0); Hemoglobin 6.4 g/dL (11.7-16.6); Platelet Count 23 10^3/cmm (130-400); Slide Review Slide Review Perform
[2020-11-16] MEDS: metoprolol succinate ER (24 HR) 25 mg Tablet 12.5 MG PO (08:10)
[2020-11-16] MEDS: clopidogrel 75 mg Tablet PO (08:10)
[2020-11-16] MEDS: lisinopril 5 mg Tablet PO (08:10)
[2020-11-16] MEDS: sodium chloride 0.9% (100 ml) 100 ML 50 ML ×2 (14:17→16:51)
--- NOTE | 2020-11-16 14:40 | P.PN_ITS ---
Subjective Subjective: Interval history: Deny any active complain.SOB has much improved post transfusion, deny any bleeding episode. Vitals reviewed,labs reviewed Medications: Reviewed: Yes Vitals/I&O/Wt Last Vital Signs Temp 98.0 F 11/16/20 12:26 Pulse 64 11/16/20 14:00 Resp 20 H 11/16/20 14:00 BP 93/56 11/16/20 14:00 Pulse Ox 99 11/16/20 14:00 11/15/20 11/16/20 11/16/20 22:59 06:59 14:59 Intake Total 200 / 200 480 / 480 Output Total 950 / 950 Balance -750 / -750 480 / 480 Weight last 48 hrs Weight 84.958 kg Weight 88.451 kg Physical Exam Const: COMMON NORMALS: patient oriented x3 HENMT: COMMON NORMALS: normocephalic, atraumatic and hearing grossly normal bilaterally HEAD & SCALP: normocephalic and atraumatic Eye: COMMON NORMALS: no scleral icterus Chest: COMMONS NORMALS: normal inspection of the chest and normal palpation of entire chest wall CHEST: Yes Symmetrical chest wall rise Resp: COMMON NORMALS: normal respiratory effort, No retractions, No use of accessory muscles and clear to auscultation bilaterally EFFORT & INSPECTION: Yes symmetric chest movement AUSCULTATION: clear to auscultation bilaterally Cardio: COMMON NORMALS: regular rate, regular rhythm, S1 normal heart sound present, S2 normal heart sound present, No gallops present (Cardio), No murmurs present (Cardio), No rub (Cardio) and Peripheral pulses 2+ throughout RATE: regular rate RHYTHM: regular rhythm HEART SOUNDS: S1 normal heart sound present and S2 normal heart sound present PERIPHERAL PULSES: Peripheral pulses 2+ throughout GI: COMMON NORMALS: Normal to inspection, nondistended, normoactive bowel sounds present, Soft to palpation, non-tender, No hepatosplenomegaly present and no masses AUSCULTATION: Yes normoactive bowel sounds PALPATION: Yes Soft to palpation and Yes No hepatosplenomegaly present RECTAL EXAM: Yes deferred Extremity: COMMON NORMALS: no clubbing, cyanosis or edema and no pedal edema Neuro: COMMON NORMALS: patient oriented x3 Urinary Catheter Management^: Badillo: Cath Placed During This Visit: yes Reason for Continuing Indwelling Catheter: Accurate Measurement of Urinary Output in Critically Ill Patients Urinary Catheter Date of Insertion: 11/16/20 Urinary Catheter Time of Insertion: 03:43 Data : 11/16/20 06:59 11/16/20 06:59 A&P Assessment and plan (1) Thrombocytopenia: Asymptomatic severe Thrombocytopenia most likely culprit can be recent antibiotic use (has used KFLEX since last for 5 days).R/O Other causes . Differential Diagnosis of thrombocytopenia will include TTP ,HUS DIC, SORIA Syndrome, HIV ,HePc , Bone marrow disorder,ITP, DITP, infection. PBS : has failed to show schistocytes : Hence TTP/HUS/DIC can be ruled out ( c linical picture too don't fit in), HIT is low in probability given no h/o of heparin use ( atleat within the last 90 days ).4T score is unremarkable SORIA Syndrome ( auto immune LOPEZ , thrombocytopenia and splenomegaly ) is not a possibility as ( T.Bili is normal , to complete hemolytic work up will order LDH, Hapto) ITP, DITP , HIV, HEP C :Is low in probability as it is not isolated thrombocytop enia. Probable Primary Bone marrow disorder is low in probability as PBS has failed to show : Blast, Pelger,huet , Dacrocytes. Current plan is transfuse 1 U platelet : as the PC has dropped to : 22T and ( one time Aspirin as well as plavix was used) And Monitor CBC as well as signs of active bleed. Hold Aspirin and Plavix for now Status: Acute (2) Anemia: Severe symptomatic Macrocytic Anemia : Likely anemia of inflammatory disease. Serum B12 level :Normal Transfuse 2 U s PRBC Monitor CBC Follow anemia Panel Status: Acute Qualifiers: Anemia type: unspecified type Qualified Code(s): D64.9 - Anemia, unspecified (3) Elevated troponin: Likely TYPE II M.I due severe symptomatic anemia. Post Transfusion SOB has improved.Deny any chest pain. 2D Echo : Normal LV Size, Normal LVEF , No RWMA, Normal PAP. No significant valvular abnormality EKG : A.fib with RVR Status: Acute (4) BPH with obstruction/lower urinary tract symptoms: Has indwelling badillo. Continue finasteride 5 mg po daily. Status: Acute Additional A&P Information DVT PPX: SCD Code status :Full code Attestations Medical Necessity Statement*: Patient need to be in hospital for the management of severe thrombocytopenia,anaemia , elevated troponin Coding Level of Care Code Acute Video Camera Operator for g Fwd Exam Comprehensive Diagnoses Thrombocytopenia D69.6 Anemia D64.9 Anemia type: unspecified type Elevated troponin R77.8 BPH with obstruction/lower urinary tract symptoms N40.1; N13.8
[2020-11-16 17:36] LABS: Coronavirus Test Green County Not Detected
[2020-11-16 19:27] LABS: Hematocrit 24.8 % (42.0-52.0); Hemoglobin 8.1 g/dL (11.7-16.6); Mean Corpuscular HGB Conc 32.7 g/dL (30.0-36.0); Mean Corpuscular Hemoglobin 31.4 pg (28.0-34.0); Mean Corpuscular Volume 96.1 fL (80-94); Mean Platelet Volume 11.6 fL (7.4-10.4); Platelet Count 49 10^3/cmm (130-400); Red Blood Count 2.58 10^6/uL (4.1-5.3); Red Cell Distribution Width 17.9 % (12.1-15.1); White Blood Count 3.7 10^3/uL (4.0-10.0)
[2020-11-16] MEDS: atorvastatin 40 mg Tablet 80 MG PO (20:42)
[2020-11-16 21:28] LABS: Absolute Neutrophil 1.4 10^3/cmm (1.4-6.5); Absolute Segmented Neutrophil 1.4 10/cmm (1.6-7.1); Anisocytosis 1+; Eosinophils 0 %; Hypochromasia 1+; Lymphocytes 39 %; Monocytes Absolute 0.2 10^3/cmm (0.1-0.6); Platelet Estimate Decreased (Normal); Segmented Neutrophils 38 %; Total Cells Counted 100 (0-100)
[2020-11-17] VITALS (20 sets, daily range): BP systolic 112–133; BP diastolic 60–77; PULSE 62–85; RESP 15–28; TEMP 36.5–37.2; O2SAT 84–97
[2020-11-17 04:20] LABS: Basophils # 0.1 10^3/uL (0.0-0.1); Basophils % 1.5 %; Eosinophils % 0.3 %; Hematocrit 25.1 % (42.0-52.0); Hemoglobin 8.2 g/dL (11.7-16.6); Lymphocytes % 29.4 %; Mean Corpuscular HGB Conc 32.7 g/dL (30.0-36.0); Mean Corpuscular Hemoglobin 31.3 pg (28.0-34.0); Mean Corpuscular Volume 95.8 fL (80-94); Mean Platelet Volume 11.8 fL (7.4-10.4); Monocytes # 1.1 10^3/uL (0.2-0.9); Monocytes % 32.7 %; Neutrophils # 1.18 10^3/uL (1.8-7.7); Neutrophils % 34.4 %; Nucleated Red Blood Cells # 0.1 /100WBC; Nucleated Red Blood Cells % 3.2 %; Platelet Count 48 10^3/cmm (130-400); Red Blood Count 2.62 10^6/uL (4.1-5.3); Red Cell Distribution Width 18.5 % (12.1-15.1); White Blood Count 3.4 10^3/uL (4.0-10.0)
[2020-11-17 04:48] LABS: Alanine Aminotransferase 45 U/L (0-41); Albumin Level 2.7 g/dL (3.5-5.2); Alkaline Phosphatase 59 IU/L (40-130); Aspartate Amino Transferase 69 U/L (0-40); Blood Urea Nitrogen 52 mg/dL (8-23); Calcium 8.6 mg/dL (8.5-10.5); Carbon Dioxide 23 mmol/L (22-29); Chloride 104 mmol/L (98-107); Globulin 3.6 g/dL (1.3-4.6); Glucose 117 mg/dL (65-115); Osmolality Calculated 303 mOsm/kg (285-295); Sodium 139 mmol/L (136-145); Total Bilirubin 0.6 mg/dL (0.15-1.2); Total Protein 6.3 g/dL (6.6-8.7)
[2020-11-17 04:53] LABS: C Reactive Protein 200.6 mg/L (0.0-4.9)
[2020-11-17 05:01] LABS: Hepatitis C Virus Antibody Non-Reactive (Nonreactive)
[2020-11-17 05:15] LABS: HIV 1 & 2 Antibody Non-Reactive (Non-Reactiv); HIV 1 & 2 Antigen Non-Reactive (Non-Reactiv); Slide Review Slide Review Perform
[2020-11-17 05:34] LABS: Erythrocyte Sedimentation Rate 102 mm/hr (0-10)
[2020-11-17] MEDS: finasteride 5 mg Tablet PO (06:47)
[2020-11-17] MEDS: metoprolol succinate ER (24 HR) 25 mg Tablet 12.5 MG PO (08:28)
[2020-11-17] MEDS: lisinopril 5 mg Tablet PO (08:28)
--- NOTE | 2020-11-17 09:30 | PC.NURSE ---
patient resting in bed at time of assessment. patient states that he would like his badillo out but afraid that his equipment wouldn't work. patient educated that we would ask the dr and see if we could.
--- NOTE | 2020-11-17 10:45 | PM.PN ---
Subjective Subjective: Interval history: is doing Fine.Denies any bleeding.Has remained afebrile, tolerating diet well. Other vitals and labs have been reviewed. Medications: Reviewed: Yes Vitals/I&O/Wt Last Vital Signs Temp 97.7 F 11/17/20 08:00 Pulse 72 11/17/20 10:00 Resp 23 H 11/17/20 10:00 BP 132/64 11/17/20 10:00 Pulse Ox 97 11/17/20 08:00 11/16/20 11/17/20 11/17/20 22:59 06:59 14:59 Intake Total 826 / 1656 240 / 240 Output Total 1300 / 1300 750 / 2050 Balance -474 / 356 -750 / -394 240 / 240 Weight last 48 hrs Weight 84.958 kg Weight 88.451 kg Physical Exam Const: COMMON NORMALS: patient oriented x3 Chest: COMMONS NORMALS: normal inspection of the chest CHEST: Yes Symmetrical chest wall rise Resp: COMMON NORMALS: normal respiratory effort and clear to auscultation bilaterally EFFORT & INSPECTION: Yes symmetric chest movement AUSCULTATION: clear to auscultation bilaterally Cardio: COMMON NORMALS: regular rate, regular rhythm, S1 normal heart sound present, S2 normal heart sound present, No gallops present (Cardio), No murmurs present (Cardio), No rub (Cardio) and Peripheral pulses 2+ throughout RATE: regular rate RHYTHM: regular rhythm HEART SOUNDS: S1 normal heart sound present and S2 normal heart sound present PERIPHERAL PULSES: Peripheral pulses 2+ throughout GI: COMMON NORMALS: Normal to inspection, nondistended, normoactive bowel sounds present, Soft to palpation, non-tender, No hepatosplenomegaly present and no masses AUSCULTATION: Yes normoactive bowel sounds PALPATION: Yes Soft to palpation and Yes No hepatosplenomegaly present RECTAL EXAM: Yes deferred Extremity: COMMON NORMALS: no clubbing, cyanosis or edema and no pedal edema Neuro: COMMON NORMALS: patient oriented x3 Urinary Catheter Management^: Badillo: Cath Placed During This Visit: yes Reason for Continuing Indwelling Catheter: Accurate Measurement of Urinary Output in Critically Ill Patients Urinary Catheter Date of Insertion: 11/16/20 Urinary Catheter Time of Insertion: 03:43 Data : 11/17/20 04:06 11/17/20 04:06 A&P Assessment and plan (1) Thrombocytopenia: Asymptomatic severe Thrombocytopenia most likely culprit can be recent antibiotic use (has used KFLEX since last for 5 days).V/S Possible Infection ( Possibly viral ) . Differential Diagnosis of thrombocytopenia will include TTP ,HUS DIC, SORIA Syndrome, HIV ,HePc , Bone marrow disorder,ITP, DITP, infection. PBS : has failed to show schistocytes : Hence TTP/HUS/DIC can be ruled out ( clinical picture too don't fit in), HIT is low in probability given no h/o of heparin use ( atleat within the last 90 days ).4T score is unremarkable SORIA Syndrome ( auto immune LOPEZ , thrombocytopenia and splenomegaly ) is not a possibility as ( T.Bili is normal , to complete hemolytic work up will order LDH, Hapto) ITP, DITP , HIV, HEP C :Is low in probability as it is not isolated thrombocytopenia. Probable Primary Bone marrow disorder is low in probability as PBS has failed to show : Blast, Pelger,huet , Dacrocytes. S/P 1 U platelet :PC Trend : 22--->23--->49---> 48 HIV : Negative, Hep C : Negative HIT Panel : Pending COVID PCR : Negative C.T Head without contrast : No acute intrcranial pathology Monitor CBC as well as signs of active bleed. Hold Aspirin and Plavix for now. Status: Acute (2) Anemia: Severe symptomatic Macrocytic Anemia : Likely anemia of inflammatory disease. Serum B12 level :Normal S/P 2 U s PRBC Transfusion Monitor CBC Follow anemia Panel Status: Acute Qualifiers: Anemia type: unspecified type Qualified Code(s): D64.9 - Anemia, unspecified (3) Elevated troponin: Likely TYPE II M.I due severe symptomatic anemia. VS Viral Myocarditis. ESR : 102, CRP: 206 2D Echo : Normal LV Size, Normal LVEF , No RWMA, Normal PAP. No significant valvular abnormality EKG : A.fib with RVR Follow Respiratory viral panel PCR Parvo B 19 Antibody Status: Acute (4) A-fib: Currently rate controlled: On Metoprolol .S 12.5 mg q Daily. Status: Acute (5) BPH with obstruction/lower urinary tract symptoms: Has indwelling badillo. Continue finasteride 5 mg po daily. Status: Acute Additional A&P Information DVT PPX: SCD Code status :Full code Attestations Medical Necessity Statement*: Patient needs to be in hospital for the management of Severe Thrombocytopenia as well as Anemia Coding Level of Care Code Acute Waterproof Bag Cutting Machine Operator for Chg Fwd Diagnoses Thrombocytopenia D69.6 Anemia D64.9 Anemia type: unspecified type Elevated troponin R77.8 A-fib I48.91 BPH with obstruction/lower urinary tract symptoms N40.1; N13.8
--- NOTE | 2020-11-17 13:43 | CT_ITS ---
WS: [id number] CT HEAD TECHNIQUE: Noncontrast CT of the head obtained from the skullbase to the vertex. CLINICAL INFORMATION: Headache COMPARISON: None. DLP: 1572.[address] scans at [facility] use at least one of these dose optimization techniques: automat ed exposure control; mA and/or kV adjustment per patient size (includes targeted exams where dose is matched to clinical indication); or iterative reconstruction. FINDINGS: No evidence of intracranial hemorrhage or mass effect. Ventricular system and basal cisterns are angela nt. Mild small vessel changes with mild parenchymal volume loss. No extra-axial fluid collections. No evidence of mass or mass effect. Normal bolaños-white differentiation. Paranasal sinuses and mastoid air cells are well aerated. .Normal visualized soft tissues. CT/CT head wo con* [id number] IMPRESSION: 1. No evidence of intracranial hemorrhage or mass effect. 2. Mild small vessel changes. Mild parenchymal volume loss. 3. No acute intracranial findings.
[2020-11-17] MEDS: atorvastatin 40 mg Tablet 80 MG PO (20:01)
--- NOTE | 2020-11-17 22:01 | PC.NURSE ---
Pt O2 dropped to 86% on RA during sleep. 2LNC placed on pt, 93% on cannula. RT notified.
[2020-11-18] VITALS (15 sets, daily range): BP systolic 105–141; BP diastolic 48–81; PULSE 62–97; RESP 18–31; TEMP 36.6–37; O2SAT 90–97
[2020-11-18 04:51] LABS: Basophils # 0.1 10^3/uL (0.0-0.1); Basophils % 1.8 %; Eosinophils % 0.3 %; Hemoglobin 8.9 g/dL (11.7-16.6); Lymphocytes # 1.6 10^3/uL (0.8-4.8); Mean Corpuscular Hemoglobin 31.2 pg (28.0-34.0); Mean Corpuscular Volume 94.7 fL (80-94); Monocytes # 0.7 10^3/uL (0.2-0.9); Monocytes % 16.4 %; Neutrophils % 37.7 %; Nucleated Red Blood Cells # 0.1 /100WBC; Nucleated Red Blood Cells % 2.5 %; Platelet Count 32 10^3/cmm (130-400); Red Blood Count 2.85 10^6/uL (4.1-5.3); Red Cell Distribution Width 17.6 % (12.1-15.1)
[2020-11-18 05:28] LABS: Alanine Aminotransferase 79 U/L (0-41); Albumin Level 2.8 g/dL (3.5-5.2); Alkaline Phosphatase 62 IU/L (40-130); Anion Gap 14.1 (5-19); Aspartate Amino Transferase 74 U/L (0-40); Blood Urea Nitrogen 39 mg/dL (8-23); Calcium 8.6 mg/dL (8.5-10.5); Carbon Dioxide 25 mmol/L (22-29); Chloride 105 mmol/L (98-107); Globulin 3.3 g/dL (1.3-4.6); Glucose 100 mg/dL (65-115); Osmolality Calculated 299 mOsm/kg (285-295); Potassium 4.1 mmol/L (3.5-5.1); Sodium 140 mmol/L (136-145); Total Bilirubin 0.7 mg/dL (0.15-1.2); Total Protein 6.1 g/dL (6.6-8.7)
--- NOTE | 2020-11-18 06:35 | PC.NURSE ---
Patient arrived to the floor from the ICU after report was received via phone. Patient has been oriented to his room and has call light within reach. VSS. Patient does not complain of any pain and is not in any distress. Patient is alert and oriented and ambulatory.
--- NOTE | 2020-11-18 06:35 | PC.NURSE ---
Report called to CSU PHAN Mathew. Pt transported by w/c, vss.
--- NOTE | 2020-11-18 07:00 | PC.NURSE ---
patient resting in bed at this time. call light with reach. no other needs identified at this time.
[2020-11-18 07:19] LABS: Slide Review Slide Review Perform
[2020-11-18] MEDS: finasteride 5 mg Tablet PO (08:04)
[2020-11-18] MEDS: azithromycin 500 MG in sodium chloride 0.9% 250 ML 250 MG IV (08:30)
[2020-11-18] MEDS: lisinopril 5 mg Tablet PO (08:31)
[2020-11-18] MEDS: metoprolol succinate ER (24 HR) 25 mg Tablet 12.5 MG PO (08:31)
[2020-11-18 09:17] LABS: Lactate Dehydrogenase 652 U/L (135-225)
[2020-11-18] MEDS: predniSONE 20 mg Tablet 100 MG PO (10:41)
--- NOTE | 2020-11-18 12:20 | PC.NURSE ---
dr. villegas in to see patient and explain the plan moving forward.
--- NOTE | 2020-11-18 13:05 | P.CONIM_ITS ---
Providers/Reason For Consult Consulting Physican/Specialty*: MD Elisabet Hem/Onc Reason for Consult*: Pancytopenia Attending Physician: Bolivar Rivas MD Primary Care Provider: NEHEMIAS Tom History of Present Illness History of Present Illness Ladarius Lai is a 70 year old male who was admitted to hospital with progressive shortness of breath, as per patient he has been feeling weak and tired since March 2020, and eventually last week he was admitted to hospital with progressive shortness of breath and his pulse ox was in the 80s on room air. Patient underwent CT angiogram chest abdomen pelvis on November 16, 2020 which showed no apparent pulmonary embolism and spleen size was 11.2 cm as per discussion with Dr. Stefano araujo. And his CBC showed white blood count 5.3, hemoglobin 7.7 g hematocrit 23.9, MCV 99.2 and platelets 22,000, patient was given 1 unit of platelet transfusion and follow-up CBC done on November 18, 2020 shows white blood count 4000 hemoglobin 8.9 g hematocrit 27 platelets 32,000 ANC 1500 and peripheral blood smear, as per discussion with pathology shows atypical lymphocytes, large sized platelets but decread in number. Patient denies any history of melena or hematochezia, denies any history of hemoptysis or hematemesis, but history of off and on gross hematuria, denies any history of jaundice, denies any history of night sweats or weight loss, denies any history of recurrent fevers, denies any history of peripheral lymphadenopathy or abdominal fullness, denies any history of gum bleed or nosebleed. Patient also denies any history of blood disorder previously, as per discussion with Dr. Rivas, his last CBC from May 2019, was within normal range. Patient denies any history of herbs or alternative therapy but admitted taking ibuprofen on regular basis for sleep. Patient denies any nausea or vomiting or indigestion, denies any diarrhea or constipation, denies any history of alcohol abuse. Review of Systems Narrative: Denies any breath at rest denies any palpitation, denies any abdominal pain ENMT: Reports: oral sores Meds/Allergies Home Medications and Allergies Home Medications Medication Instructions Recorded Confirmed Last Taken Type aspirin 81 mg PO DAILY@07 11/10/20 11/16/20 11/15/20 07:00 History cephalexin 500 mg PO Q6H 7 Days #28 cap 11/10/20 11/16/20 11/15/20 07:00 Rx finasteride 5 mg PO DAILY@07 11/10/20 11/16/20 11/15/20 07:00 History Allergies Allergy/AdvReac Type Severity Reaction Status Date / Time No Known Allergies Allergy Unverified 10/11/20 09:59 Current Medications Current Medications Generic Name Dose Route Start Last Admin Trade Name Freq PRN Reason Stop Dose Admin Atorvastatin Calcium 80 mg 11/16/20 21:00 11/17/20 20:01 Atorvastatin 40 Mg Tablet PO 80 mg BEDTIME STARR Administration Finasteride 5 mg 11/16/20 07:00 11/18/20 08:04 Finasteride 5 Mg Tablet PO 5 mg DAILY@07 STARR Administration Azithromycin 500 mg/ Sodium 250 mls @ 250 mls/hr 11/18/20 07:30 11/18/20 08:30 Chloride IV 250 mls/hr Q24H STARR Administration Protocol Lisinopril 5 mg 11/16/20 09:00 11/18/20 08:31 Lisinopril 5 Mg Tablet PO 5 mg DAILY STARR Administration Metoprolol Succinate 12.5 mg 11/16/20 09:00 11/18/20 08:31 Metoprolol Succinate Er (24 Hr) 25 Mg Tablet PO 12.5 mg DAILY STARR Administration Prednisone 100 mg 11/18/20 09:50 11/18/20 10:41 Prednisone 20 Mg Tablet PO 11/22/20 06:00 100 mg DAILY STARR Administration PFSH Acute PFSH: Medical History Acute cystitis Bladder stone BPH with obstruction/lower urinary tract symptoms Gross hematuria Urinary retention Surgical History Bladder calculi CYSTOLITHOLAPAXY H/O heart artery stent History of left-sided carotid endarterectomy History of repair of aneurysm of abdominal aorta using endovascular stent graft Family History Mother , AT AGE 82 ALZHEIMERS Alzheimer's dementia Father , AT AGE 82 OLD AGE No problems noted. Social History Smoking and tobacco status: current some day smoker Alcohol intake: current Alcohol intake frequency: few times a month Adopted: No Caregiver/support person: No Lives independently: No Household members: spouse Marital status: Current occupational status: retired History of recent travel: No Vitals/I&O/Wt Last Vital Signs Temp 98.6 F 11/18/20 10:00 Pulse 95 11/18/20 10:00 Resp 23 H 11/18/20 10:00 BP 105/48 11/18/20 10:00 Pulse Ox 93 11/18/20 10:00 11/17/20 11/18/20 11/18/20 22:59 06:59 14:59 Intake Total 120 / 480 360 / 360 Output Total 1150 / 1150 900 / 0 Balance -1030 / -670 -900 / -1570 360 / 360 Physical Exam HENMT: COMMON NORMALS: normocephalic, atraumatic and moist oral mucous membranes HEAD & SCALP: normocephalic and atraumatic Lymph: LYMPHATIC: no lymphadenopathy noted Resp: COMMON NORMALS: clear to auscultation bilaterally EFFORT & INSPECTION: Yes symmetric chest movement AUSCULTATION: clear to auscultation bilaterally Cardio: COMMON NORMALS: regular rate and regular rhythm RATE: regular rate RHYTHM: regular rhythm Extremity: COMMON NORMALS: no pedal edema Urinary Catheter Management^: Medrano: Cath Placed During This Visit: yes Reason for Continuing Indwelling Catheter: Accurate Measurement of Urinary Output in Critically Ill Patients Urinary Catheter Date of Insertion: 11/16/20 Urinary Catheter Time of Insertion: 03:43 Data Micro: Micro: Microbiology 11/17/20 17:30 Occult Blood (FIT) - Final Stool Routine Col lection A&P Additional A&P Information Discussed with patient regarding his lab work-up which showed normocytic anemia along with moderate to severe thrombocytopenia, etiology remained unclear but could be due to nutritional like B12/iron deficiency or considering his age underlying myelodysplasia cannot be ruled out or underlying hematological malignancy as peripheral blood smear shows atypical lymphocytes, his anemia work-up which includes iron studies and B12 level showed normal/elevated values. His peripheral blood smear was reviewed with pathology, so we will recommend peripheral blood flow cytometry to rule out underlying hematological malignancy and also try high-dose prednisone on trial basis for possible underlying low- grade ITP and monitor his platelet count, if no improvement, will consider bone marrow evaluation. Patient expressed full understanding. Follow-up with his CBC transfuse 2 units of packed RBC if hemoglobin less than 8 g and transfuse unit of platelets if count is less than 20,000 or less than 50,000 if bleeding. Coding Level of Care Code Acute Fitter Type Bar And Segment for Lb Aguirre
[2020-11-18 14:18] LABS: Hepatitis A Antibody IgM Non-Reactive (Nonreactive); Hepatitis B Core IgM Non-Reactive (Nonreactive); Hepatitis B Surface Antigen Non-Reactive (Nonreactive); Hepatitis C Virus Antibody Non-Reactive (Nonreactive)
--- NOTE | 2020-11-18 14:42 | PM.PN ---
Subjective Subjective: Interval history: Patient reports he is feeling okay. Denies any abdominal pain. No chest pain. Reports he is not short of breath. Medications: Reviewed: Yes Vitals/I&O/Wt Last Vital Signs Temp 98.6 F 11/18/20 10:00 Pulse 76 11/18/20 14:00 Resp 23 H 11/18/20 10:00 BP 105/48 11/18/20 10:00 Pulse Ox 93 11/18/20 10:00 11/17/20 11/18/20 11/18/20 22:59 06:59 14:59 Intake Total 120 / 480 720 / 720 Output Total 1150 / 1150 900 / 2050 Balance -1030 / -670 -900 / -1570 720 / 720 Physical Exam Narrative: EXAM NARRATIVE: General exam no apparent distress Cardiovascular regular rate and rhythm without murmur Lungs clear Abdomen is soft with positive bowel sounds Extremities no cyanosis clubbing or edema Urinary Catheter Management^: Badillo: Cath Placed During This Visit: yes Reason for Continuing Indwelling Catheter: Accurate Measurement of Urinary Output in Critically Ill Patients Urinary Catheter Date of Insertion: 11/16/20 Urinary Catheter Time of Insertion: 03:43 Data : 11/18/20 04:37 11/18/20 04:37 Micro: Microbiology 11/17/20 17:30 Occult Blood (FIT) - Final Stool Routine Collection A&P Assessment and plan (1) Thrombocytopenia: Etiology unknown No evidence of hemolysis Has received 1 unit pheresis platelets on admission At this point I cannot demonstrate any active bleeding although he was heme positive, not grossly so on admission. Differential diagnosis includes ITP, underlying malignancy, myelodysplasia. Doubt TTP Doubt this is an effect of cephalexin he was on previously. Most likely he already had thrombocytopenia prior to getting this and hematuria was secondary to this. Check hepatitis panel. HIV is pending Hematology consultation. They recommend initiating 100 mg of prednisone daily and following platelet count. Covid PCR negative Holding antiplatelet agents. No splenomegaly on CT No need to transfuse platelets unless evidence of active bleeding, or platelet count less than 10-20,000. Status: Acute (2) Anemia: Severe symptomatic Macrocytic Anemia B12 levels normal Status post transfusion 2 units Hemoglobin currently appears stable Appreciate hematology consultation. Status: Inactive Qualifiers: Anemia type: unspecified type Qualified Code(s): D64.9 - Anemia, unspecified (3) Elevated troponin: Type II Echocardiogram essentially normal Status: Acute (4) A-fib: Rate controlled on metoprolol Status: Acute (5) BPH with obstruction/lower urinary tract symptoms: Has indwelling badillo. Continue finasteride 5 mg po daily. Status: Acute Additional A&P Information Heme positive stool. Continue Protonix at this point. Tobacco dependency. Possible COPD. Continue nebs as needed. SCDs for DVT prophylaxis Full code Discontinue Zithromax. No clinical evidence of pulmonary infection currently. Attestations Medical Necessity Statement*: Needs continued hospital stay for close follow-up of severe thrombocytopenia. Coding Level of Care Code Acute Telecommunication Operator for Chg Fwd Diagnoses Thrombocytopenia D69.6 Anemia D64.9 Anemia type: unspecified type Elevated troponin R77.8 A-fib I48.91 BPH with obstruction/lower urinary tract symptoms N40.1; N13.8
--- NOTE | 2020-11-18 14:58 | PC.NURSE ---
Dr villegas gave verbal instructions while at bedside for lidocane 2% vicus mucus mem TIB PRN before meals
[2020-11-18] MEDS: pantoprazole DR 40 mg Tablet PO (17:35)
[2020-11-18 17:39] LABS: Blood Urine 3+ (Negative); Glucose Urine UA Norm (Normal); Ketones Urine Negative (Negative); Nitrate Urine Negative (Negative); Protein Urine Trace (Negative); Specific Gravity, Urine 1.015 (1.005-1.030); Urine Appearance Cloudy (CLEAR); Urine Color Orange (Yellow)
[2020-11-18 17:40] LABS: Add Urine Culture? Yes; Bacteria Urine 3+ /hpf; Bilirubin Urine Neg (Negative); Leukocyte Esterase Urine Negative (Negative); Mucus Urine 2+ /hpf; RBC Urine 25-40 /hpf (0-2); Urobilinogen Urine Norm (Negative)
--- NOTE | 2020-11-18 19:58 | PC.NURSE ---
Received report from PHAN Guerrero. Patient resting in bed. Patient questioning suprapubic catheter as to when he can have that removed. He is requesting to see Dr Clarke to follow up with this. He is reporting that it is very uncomfortable.
[2020-11-18] MEDS: atorvastatin 40 mg Tablet 80 MG PO (20:43)
[2020-11-19] VITALS (28 sets, daily range): BP systolic 91–132; BP diastolic 51–70; PULSE 59–85; RESP 14–27; TEMP 36.4–36.9; O2SAT 91–95
[2020-11-19 04:46] LABS: Basophils # 0.1 10^3/uL (0.0-0.1); Basophils % 2.1 %; Eosinophils % 0.2 %; Hematocrit 28.4 % (42.0-52.0); Hemoglobin 9.4 g/dL (11.7-16.6); Lymphocytes # 1.7 10^3/uL (0.8-4.8); Lymphocytes % 33.1 %; Mean Corpuscular HGB Conc 33.1 g/dL (30.0-36.0); Mean Corpuscular Hemoglobin 31.6 pg (28.0-34.0); Mean Corpuscular Volume 95.6 fL (80-94); Monocytes # 1.4 10^3/uL (0.2-0.9); Monocytes % 27.3 %; Neutrophils # 1.94 10^3/uL (1.8-7.7); Neutrophils % 37.1 %; Nucleated Red Blood Cells # 0.1 /100WBC; Nucleated Red Blood Cells % 1.5 %; Platelet Count 34 10^3/cmm (130-400); Red Blood Count 2.97 10^6/uL (4.1-5.3); Red Cell Distribution Width 17.8 % (12.1-15.1); White Blood Count 5.2 10^3/uL (4.0-10.0)
[2020-11-19 05:11] LABS: Alanine Aminotransferase 63 U/L (0-41); Albumin Level 3.2 g/dL (3.5-5.2); Alkaline Phosphatase 67 IU/L (40-130); Anion Gap 16.2 (5-19); Aspartate Amino Transferase 38 U/L (0-40); Blood Urea Nitrogen 42 mg/dL (8-23); Calcium 9.1 mg/dL (8.5-10.5); Carbon Dioxide 24 mmol/L (22-29); Chloride 104 mmol/L (98-107); Globulin 3.7 g/dL (1.3-4.6); Glucose 130 mg/dL (65-115); Osmolality Calculated 302 mOsm/kg (285-295); Potassium 4.2 mmol/L (3.5-5.1); Sodium 140 mmol/L (136-145); Total Bilirubin 0.8 mg/dL (0.15-1.2); Total Protein 6.9 g/dL (6.6-8.7)
[2020-11-19] MEDS: finasteride 5 mg Tablet PO (06:13)
[2020-11-19 07:04] LABS: Mean Platelet Volume 11.8 fL (7.4-10.4); Slide Review Slide Review Perform
[2020-11-19] MEDS: pantoprazole DR 40 mg Tablet PO ×2 (08:30→17:23)
[2020-11-19] MEDS: predniSONE 20 mg Tablet 100 MG PO (08:31)
--- NOTE | 2020-11-19 08:43 | PC.SOCIAL ---
*IMM* Patient received Important message from Medicare. Initialled and copy placed in chart, patient was gave the original.
[2020-11-19] MEDS: metoprolol succinate ER (24 HR) 25 mg Tablet 12.5 MG PO (09:31)
[2020-11-19] MEDS: lisinopril 5 mg Tablet PO (09:31)
--- NOTE | 2020-11-19 10:22 | PC.NURSE ---
Patient reported pain and in lower ABD, bladder distended. No urine output noted from catheter. Catheter readvanced using sterile technique, no urine returned. Dr. Rendon notified. Verbal order to bladder scan patient. If urinary retention noted, place new catheter. 523 ml of urine bladder scanned. Badillo was discontinued, new catheter placed. approximately 500 ml of urine returned, patient verbalized relief of pain. Dr. Rendon updated. Telephone order to irrigate badillo prn with sterile saline to clear obstructions. Nurse to continue to monitor.
--- NOTE | 2020-11-19 10:41 | P.PN_ITS ---
Subjective Subjective: Interval history: This is a 70-year-old male with history of BPH, status post cystolitholopaxy, abdominal aortic aneurysm with repair and graft, left carotid enterectomy presented to the ER with worsening shortness of breath. He was also noted to have difficulty with urination. The patient was also noted to be anemic and have thrombocytopenia. Patient also had abnormal EKGs. He was on oxygen. No PE was found. Hematology has been consulted. He has received 1 unit of pheresis platelets. Hematology also recommending steroids. Stated that could be nutritional. His main complaints this morning include low urine output. Bladder scan done. Nurses adjusted Badillo improved urine output. No signs of bleeding Vitals/I&O/Wt Last Vital Signs Temp 97.6 F 11/19/20 08:00 Pulse 76 11/19/20 08:00 Resp 17 11/19/20 08:00 BP 121/69 11/19/20 08:00 Pulse Ox 91 11/19/20 08:00 11/18/20 11/19/20 11/19/20 22:59 06:59 14:59 Intake Total 120 / 840 150 / 990 360 / 360 Output Total 250 / 250 100 / 350 Balance -130 / 590 50 / 640 360 / 360 Physical Exam Const: COMMON NORMALS: no acute distress and average body habitus Resp: COMMON NORMALS: normal respiratory effort and No retractions Cardio: COMMON NORMALS: regular rate and regular rhythm RATE: regular rate RHYTHM: regular rhythm GI: COMMON NORMALS: Soft to palpation and non-tender PALPATION: Yes Soft to palpation Psych: COMMON NORMALS: mental status grossly normal and Normal thought process present THOUGHT PROCESS: Normal thought process present Urinary Catheter Management^: Badillo: Cath Placed During This Visit: yes, but has since been removed by the nurse Reason for Continuing Indwelling Catheter: Acute Urinary Retention or Obst ruction Urinary Catheter Date of Insertion: 11/19/20 Urinary Catheter Time of Insertion: 10: Date Urinary Catheter Removed: 11/19/20 Time Urinary Catheter Discontinued: 10:17 Data : 11/19/20 04:27 11/19/20 04:27 A&P Assessment and plan (1) BPH with obstruction/lower urinary tract symptoms: Status: Acute (2) Thrombocytopenia: Status: Acute (3) A-fib: Status: Acute Additional A&P Information 1) Thrombocytopenia: Etiology unknown No evidence of hemolysis Has received 1 unit pheresis platelets on admission Hematology consultation. They recommend initiating 100 mg of prednisone daily and following platelet count. Covid PCR negative Holding antiplatelet agents. No splenomegaly on CT No need to transfuse platelets unless evidence of active bleeding, or platelet count less than 10-20,000. (2) Anemia: Severe symptomatic Macrocytic Anemia B12 levels normal Status post transfusion 2 units Hemoglobin currently appears stable (3) Elevated troponin: Type II Echocardiogram completed (4) A-fib: Rate controlled on metoprolol (5) BPH with obstruction/lower urinary tract symptoms: Has indwelling badillo. Continue finasteride 5 mg po daily. Adjusted this morning bladder scan completed better output n Attestations Medical Necessity Statement*: Ladarius Lai's hospital stay will require greater than 2 midnights for ANEMIA Coding Level of Care Code Acute Special Education Science Teacher for g Fwd Exam Detailed Diagnoses BPH with obstruction/lower urinary tract symptoms N40.1; N13.8 Thrombocytopenia D69.6 A-fib I48.91
--- NOTE | 2020-11-19 15:27 | PC.NURSE ---
Dr. Rendon updated on patient condition. Patient began having blood from urethra around catheter, approx 10-15 ml EBL. urine is blood tinged. Physician rounded on patient. Verbal order to irrigate catheter if any clots are noted. Blood thinners are on hold for now. Nurse to continue to monitor.
--- NOTE | 2020-11-19 19:48 | PC.NURSE ---
PT IS RESTING IN BED. PT DENIES PAIN, BUT SAYS THAT MOUTH IS TENDER D/T SOME ABT THAT HE TOOK A COUPLE OF DAYS AGO. WILL CONTINUE TO MONITOR.
[2020-11-19] MEDS: atorvastatin 40 mg Tablet 80 MG PO (20:20)
[2020-11-20] VITALS (29 sets, daily range): BP systolic 99–123; BP diastolic 52–70; PULSE 59–80; RESP 10–40; TEMP 36.3–37.2; O2SAT 89–96
--- NOTE | 2020-11-20 04:16 | PC.NURSE ---
PT HAD AN UNEVENTFUL NIGHT. PT IS RESTING IN BED. DENIES PAIN. WILL CONTINUE TO MONITOR.
[2020-11-20 05:16] LABS: Alanine Aminotransferase 68 U/L (0-41); Albumin Level 2.8 g/dL (3.5-5.2); Alkaline Phosphatase 52 IU/L (40-130); Anion Gap 14.3 (5-19); Aspartate Amino Transferase 50 U/L (0-40); Blood Urea Nitrogen 41 mg/dL (8-23); Calcium 8.5 mg/dL (8.5-10.5); Carbon Dioxide 24 mmol/L (22-29); Chloride 105 mmol/L (98-107); Globulin 3.2 g/dL (1.3-4.6); Glucose 95 mg/dL (65-115); Osmolality Calculated 298 mOsm/kg (285-295); Potassium 4.3 mmol/L (3.5-5.1); Sodium 139 mmol/L (136-145); Total Bilirubin 0.5 mg/dL (0.15-1.2)
[2020-11-20] MEDS: finasteride 5 mg Tablet PO (06:22)
[2020-11-20 06:28] LABS: Basophils # 0.1 10^3/uL (0.0-0.1); Basophils % 1.4 %; Eosinophils % 0.2 %; Hematocrit 23.8 % (42.0-52.0); Hemoglobin 7.7 g/dL (11.7-16.6); Lymphocytes # 2.2 10^3/uL (0.8-4.8); Mean Corpuscular HGB Conc 32.4 g/dL (30.0-36.0); Mean Corpuscular Hemoglobin 31.6 pg (28.0-34.0); Mean Corpuscular Volume 97.5 fL (80-94); Mean Platelet Volume 13.5 fL (7.4-10.4); Monocytes # 0.4 10^3/uL (0.2-0.9); Neutrophils # 1.63 10^3/uL (1.8-7.7); Neutrophils % 37.2 %; Nucleated Red Blood Cells # 0.1 /100WBC; Nucleated Red Blood Cells % 1.4 %; Red Blood Count 2.44 10^6/uL (4.1-5.3); Red Cell Distribution Width 17.5 % (12.1-15.1); White Blood Count 4.4 10^3/uL (4.0-10.0)
[2020-11-20 06:30] LABS: Platelet Count 26 10^3/cmm (130-400)
[2020-11-20] MEDS: metoprolol succinate ER (24 HR) 25 mg Tablet 12.5 MG PO (08:50)
[2020-11-20] MEDS: pantoprazole DR 40 mg Tablet PO ×2 (08:50→17:10)
[2020-11-20] MEDS: lisinopril 5 mg Tablet PO (08:51)
[2020-11-20] MEDS: predniSONE 20 mg Tablet 100 MG PO (08:51)
--- NOTE | 2020-11-20 09:44 | PC.NURSE ---
pt states he had a bowel movement this morning.states it was brown in color..he did not see any blood
--- NOTE | 2020-11-20 14:12 | PM.PN ---
Subjective Subjective: Interval history: is doing fine.Has slight hematuria. No evidence of any other bleed. Vitals and labs have been reviewed. Medications: Reviewed: Yes Vitals/I&O/Wt Last Vital Signs Temp 98.0 F 11/20/20 04:00 Pulse 69 11/20/20 14:06 Resp 16 11/20/20 14:06 BP 107/64 11/20/20 08:00 Pulse Ox 94 11/20/20 14:06 11/19/20 11/20/20 11/20/20 22:59 06:59 14:59 Intake Total 480 / 1080 480 / 480 Output Total 850 / 850 900 / 1750 Balance -370 / 230 -900 / -670 480 / 480 Physical Exam Const: COMMON NORMALS: patient oriented x3 HENMT: COMMON NORMALS: normocephalic, atraumatic and external ears normal HEAD & SCALP: normocephalic and atraumatic EXTERNAL EAR: Yes external ears normal Chest: COMMONS NORMALS: normal inspection of the chest CHEST: Yes Symmetrical chest wall rise Resp: COMMON NORMALS: normal respiratory effort and clear to auscultation bilaterally EFFORT & INSPECTION: Yes symmetric chest movement AUSCULTATION: clear to auscultation bilaterally Cardio: COMMON NORMALS: regular rate, regular rhythm, S1 normal heart sound present, S2 normal heart sound present, No gallops present (Cardio), No murmurs present (Cardio), No rub (Cardio) and Peripheral pulses 2+ throughout RATE: regular rate RHYTHM: regular rhythm HEART SOUNDS: S1 normal heart sound present and S2 normal heart sound present PERIPHERAL PULSES: Peripheral pulses 2+ throughout GI: COMMON NORMALS: Normal to inspection, nondistended, normoactive bowel sounds present, Soft to palpation, non-tender, No hepatosplenomegaly present and no masses AUSCULTATION: Yes normoactive bowel sounds PALPATION: Yes Soft to palpation and Yes No hepatosplenomegaly present RECTAL EXAM: Yes deferred Extremity: COMMON NORMALS: no clubbing, cyanosis or edema and no pedal edema Neuro: COMMON NORMALS: patient oriented x3 Urinary Catheter Management^: Badillo: Cath Placed During This Visit: yes, but has since been removed by the nurse Reason for Continuing Indwelling Catheter: Acute Urinary Retention or Obstruction Urinary Catheter Date of Insertion: 11/19/20 Urinary Catheter Time of Insertion: 10: Date Urinary Catheter Removed: 11/19/20 Time Urinary Catheter Discontinued: 10:17 Data : 11/20/20 04:08 11/20/20 04:08 A&P Assessment and plan (1) BPH with obstruction/lower urinary tract symptoms: Has indwelling badillo. Continue finasteride 5 mg po daily. Status: Acute (2) Thrombocytopenia: Severe Thrombocytopenia: of Unclear Etiology: Possible causes MDS ( as has 2 Cell lines affected ) /ITP /Infection R/O Other causes. Differential Diagnosis of thrombocytopenia will include TTP ,HUS DIC, SORIA Syndrome, HIV ,HePc , Bone marrow disorder,ITP, DITP, infection. PBS : has failed to show schistocytes : Hence TTP/HUS/DIC can be ruled out ( clinical picture too don't fit in), HIT is low in probability given no h/o of heparin use ( atleat within the last 90 days ).4T score is unremarkable SORIA Syndrome ( auto immune LOPEZ , thrombocytopenia and splenomegaly ) is not a possibility as ( T.Bili is normal , to complete hemolytic work up will order LDH, Hapto) DITP , HIV, HEP C :Is low in probability as it is not isolated thrombocytopenia. Probable Primary Bone marrow disorder is low in probability as PBS has failed to show : Blast, Pelger,huet , Dacrocytes. S/P 1 U platelet :PC Trend : 22--->23--->49---> 48---->32-->34-->26 HIV : Negative, Hep C : Negative HIT Panel : Pending No evidence of hemolysis COVID PCR : Negative C.T Head without contrast : No acute intrcranial pathology. No splenomegaly on CT Monitor CBC as well as signs of active bleed. Hold Aspirin and Plavix for now. No need to transfuse platelets unless evidence of active bleeding, or platelet count less than 10-20,000. Hematology consultation. They recommend initiating 100 mg of prednisone daily and following platelet count. Status: Acute (3) A-fib: Rate controlled on metoprolol Status: Acute Additional A&P Information (2) Anemia: Severe symptomatic Macrocytic Anemia B12 levels normal Status post transfusion 2 units (3) Elevated troponin: Likely TYPE II M.I due severe symptomatic anemia. Post Transfusion SOB has improved.Deny any chest pain. 2D Echo : Normal LV Size, Normal LVEF , No RWMA, Normal PAP. No significant valvular abnormality EKG : A.fib with RVR (4) A-fib: Rate controlled on metoprolol Code Status : Full code DVT PPX: On SCDs Attestations Medical Necessity Statement*: Patient needs to be in hospital for the management of severe thrombpcytopenia Coding Level of Care Code Acute Pharmacy Clinical Coordinator for Chg Fwd Diagnoses BPH with obstruction/lower urinary tract symptoms N40.1; N13.8 Thrombocytopenia D69.6 A-fib I48.91
[2020-11-20 16:03] LABS: Adenovirus Not Detected (Not Detected); Human Metapneumovirus Not Detected (Not Detected); Human Parainflu Virus 1 Not Detected (Not Detected); Human Parainflu Virus 2 Not Detected (Not Detected); Human Parainflu Virus 3 Not Detected (Not Detected); Human Rsv A Not Detected (Not Detected); Influenza A Not Detected (Not Detected); Influenza B Not Detected (Not Detected); Rhinovirus/Enterovirus Not Detected (Not Detected)
[2020-11-20 18:15] LABS: Basophils # 0.1 10^3/uL (0.0-0.1); Basophils % 1.8 %; Hematocrit 24.8 % (42.0-52.0); Hemoglobin 7.9 g/dL (11.7-16.6); Lymphocytes # 1.5 10^3/uL (0.8-4.8); Lymphocytes % 29.6 %; Mean Corpuscular HGB Conc 31.9 g/dL (30.0-36.0); Mean Corpuscular Volume 97.3 fL (80-94); Monocytes # 1.6 10^3/uL (0.2-0.9); Monocytes % 32.2 %; Neutrophils # 1.81 10^3/uL (1.8-7.7); Neutrophils % 36.4 %; Nucleated Red Blood Cells # 0.1 /100WBC; Nucleated Red Blood Cells % 1.4 %; Red Blood Count 2.55 10^6/uL (4.1-5.3); Red Cell Distribution Width 17.2 % (12.1-15.1)
[2020-11-20 18:18] LABS: Platelet Count 28 10^3/cmm (130-400)
[2020-11-20] MEDS: atorvastatin 40 mg Tablet 80 MG PO (20:16)
--- NOTE | 2020-11-20 20:46 | PC.NURSE ---
PT IS RESTING IN BED. PT DENIES PAIN AT THIS TIME. REPORT WAS CALLED OVER TO ICU. PT GOING TO ICU 7. PT STATES THAT THEY DON'T UNDERSTAND WHY THEY ARE GOING OVER TO ICU AND THAT NO ONE IS EXPLAINING THINGS TO HIM. WILL CONTINUE TO MONITOR.
[2020-11-20] MEDS: HYDROmorphone 1 mg/mL INJ 1 mL 0.5 MG IVP (21:23)
[2020-11-21] VITALS (38 sets, daily range): BP systolic 87–129; BP diastolic 43–71; PULSE 59–134; RESP 14–25; TEMP 36.5–37.2; O2SAT 86–95
[2020-11-21] MEDS: HYDROmorphone 1 mg/mL INJ 1 mL 0.5 MG IVP ×3 (00:58→06:37)
[2020-11-21] MEDS: lanolin oint 7 gm 1 APPLIC TOPICAL (02:28)
[2020-11-21] MEDS: HYDROmorphone 1 mg/mL INJ 1 mL IVP (02:29)
[2020-11-21] MEDS: phenazopyridine 100 mg Tablet PO (03:33)
[2020-11-21 05:09] LABS: Basophils # 0.1 10^3/uL (0.0-0.1); Basophils % 1.5 %; Eosinophils % 0.2 %; Hematocrit 23.7 % (42.0-52.0); Hemoglobin 7.5 g/dL (11.7-16.6); Lymphocytes # 1.5 10^3/uL (0.8-4.8); Lymphocytes % 32.8 %; Mean Corpuscular HGB Conc 31.6 g/dL (30.0-36.0); Mean Corpuscular Volume 97.9 fL (80-94); Monocytes # 1.1 10^3/uL (0.2-0.9); Monocytes % 22.8 %; Neutrophils # 1.98 10^3/uL (1.8-7.7); Neutrophils % 42.3 %; Nucleated Red Blood Cells # 0.1 /100WBC; Nucleated Red Blood Cells % 1.5 %; Red Blood Count 2.42 10^6/uL (4.1-5.3); Red Cell Distribution Width 17.2 % (12.1-15.1); White Blood Count 4.7 10^3/uL (4.0-10.0)
[2020-11-21 05:38] LABS: Alanine Aminotransferase 79 U/L (0-41); Albumin Level 2.8 g/dL (3.5-5.2); Alkaline Phosphatase 62 IU/L (40-130); Anion Gap 13.3 (5-19); Aspartate Amino Transferase 47 U/L (0-40); Blood Urea Nitrogen 36 mg/dL (8-23); Calcium 8.3 mg/dL (8.5-10.5); Carbon Dioxide 24 mmol/L (22-29); Chloride 105 mmol/L (98-107); Globulin 3.2 g/dL (1.3-4.6); Glucose 84 mg/dL (65-115); Osmolality Calculated 294 mOsm/kg (285-295); Potassium 4.3 mmol/L (3.5-5.1); Sodium 138 mmol/L (136-145); Total Bilirubin 0.5 mg/dL (0.15-1.2)
[2020-11-21 06:06] LABS: Slide Review Slide Review Perform
[2020-11-21 06:07] LABS: Platelet Count 25 10^3/cmm (130-400)
[2020-11-21] MEDS: finasteride 5 mg Tablet PO (06:30)
[2020-11-21] MEDS: metoprolol succinate ER (24 HR) 25 mg Tablet 12.5 MG PO (08:55)
[2020-11-21] MEDS: pantoprazole DR 40 mg Tablet PO ×2 (08:56→17:15)
[2020-11-21] MEDS: predniSONE 20 mg Tablet 100 MG PO (08:56)
[2020-11-21] MEDS: lisinopril 5 mg Tablet PO (08:56)
--- NOTE | 2020-11-21 10:29 | PC.SOCIAL ---
IMM Updated Updated pt Pg 2 IMM. No questions voiced. Provided pt a copy. Signed, dated, & timed copy in chart.
--- NOTE | 2020-11-21 10:53 | PM.PN ---
Subjective Subjective: Interval history: Mr. Lai is resting comfortably.He still minimal hematuria through the badillo likely traumatic. Vitals and labs have been reviewed. Medications: Reviewed: Yes Vitals/I&O/Wt Last Vital Signs Temp 97.3 F L 11/20/20 18:55 Pulse 74 11/21/20 10:00 Resp 23 H 11/21/20 10:00 BP 99/53 11/21/20 10:00 Pulse Ox 90 11/21/20 10:00 11/20/20 11/21/20 11/21/20 22:59 06:59 14:59 Intake Total 250 / 730 350 / 350 Output Total 800 / 800 750 / 1550 Balance -800 / -320 -500 / -820 350 / 350 Physical Exam Const: COMMON NORMALS: patient oriented x3 HENMT: COMMON NORMALS: normocephalic and atraumatic HEAD & SCALP: normocephalic and atraumatic Chest: COMMONS NORMALS: normal inspection of the chest and normal palpation of entire chest wall CHEST: Yes Symmetrical chest wall rise Resp: COMMON NORMALS: normal respiratory effort, No retractions, No use of accessory muscles and clear to auscultation bilaterally EFFORT & INSPECTION: Yes symmetric chest movement AUSCULTATION: clear to auscultation bilaterally Cardio: COMMON NORMALS: regular rate, regular rhythm, S1 normal heart sound present, S2 normal heart sound present, No gallops present (Cardio), No murmurs present (Cardio), No rub (Cardio) and Peripheral pulses 2+ throughout RATE: regular rate RHYTHM: regular rhythm HEART SOUNDS: S1 normal heart sound present and S2 normal heart sound present PERIPHERAL PULSES: Peripheral pulses 2+ throughout GI: COMMON NORMALS: Normal to inspection, nondistended, normoactive bowel sounds present, Soft to palpation, non-tender, No hepatosplenomegaly present and no masses AUSCULTATION: Yes normoactive bowel sounds PALPATION: Yes Soft to palpation and Yes No hepatosplenomegaly present RECTAL EXAM: Yes deferred Extremity: COMMON NORMALS: no clubbing, cyanosis or edema and no pedal edema Neuro: COMMON NORMALS: patient oriented x3 Urinary Catheter Management^: Badillo: Cath Placed During This Visit: yes, but has since been removed by the nurse Reason for Continuing Indwelling Catheter: Accurate Measurement of Urinary Output in Critically Ill Patients Urinary Catheter Date of Insertion: 11/19/20 Urinary Catheter Time of Insertion: 10: Date Urinary Catheter Removed: 11/19/20 Time Urinary Catheter Discontinued: 10:17 Data : 11/21/20 04:22 11/21/20 04:22 Micro: Microbiology 11/20/20 07:50 Urine Culture - Preliminary Urine,Clean Catch A&P Assessment and plan (1) BPH with obstruction/lower urinary tract symptoms: Has indwelling badillo. Continue finasteride 5 mg po daily. Status: Acute (2) Thrombocytopenia: Severe Thrombocytopenia: of Unclear Etiology: Possible causes MDS ( as has 2 Cell lines affected ) /ITP /Infection R/O Other causes. Differential Diagnosis of thrombocytopenia will include TTP ,HUS DIC, SORIA Syndrome, HIV ,HePc , Bone marrow disorder,ITP, DITP, infection. PBS : has failed to show schistocytes : Hence TTP/HUS/DIC can be ruled out ( clinical picture too don't fit in), HIT is low in probability given no h/o of heparin use ( atleat within the last 90 days ).4T score is unremarkable SORIA Syndrome ( auto immune LOPEZ , thrombocytopenia and splenomegaly ) is not a possibility as ( T.Bili is normal , to complete hemolytic work up will order LDH, Hapto) DITP , HIV, HEP C :Is low in probability as it is not isolated thrombocytopenia. Probable Primary Bone marrow disorder is low in probability as PBS has failed to show : Blast, Pelger,huet , Dacrocytes. S/P 1 U platelet :PC Trend : 22--->23--->49---> 48---->32-->34-->26---> 25 HIV : Negative, Hep C : Negative HIT Panel : Pending No evidence of hemolysis COVID PCR : Negative C.T Head without contrast : No acute intrcranial pathology. No splenomegaly on CT Monitor CBC as well as signs of active bleed. Hold Aspirin and Plavix for now. No need to transfuse platelets unless evidence of active bleeding, or platelet count less than 10-20,000. Hematology consultation. They recommend initiating 100 mg of prednisone daily and following platelet count. Hematology rec appreciated Status: Acute (3) A-fib: Rate controlled on metoprolol Status: Acute Additional A&P Information (2) Anemia: Severe symptomatic Macrocytic Anemia B12 levels normal Status post transfusion 4 units transfusion. Last 2 U PRBC Given on 11/21. Monitor CBC (3) Elevated troponin: Likely TYPE II M.I due severe symptomatic anemia. Post Transfusion SOB has improved.Deny any chest pain. 2D Echo : Normal LV Size, Normal LVEF , No RWMA, Normal PAP. No significant valvular abnormality EKG : A.fib with RVR (4) A-fib: Rate controlled on metoprolol (5 ) Code Status : Full code DVT PPX: On SCDs Attestations Medical Necessity Statement*: Patient needs to be in hospital for the management of Severe thrombocytopenia/Anemia Coding Level of Care Code Acute Mail Handler Assistant for Chg Fwd Diagnoses BPH with obstruction/lower urinary tract symptoms N40.1; N13.8 Thrombocytopenia D69.6 A-fib I48.91
[2020-11-21] MEDS: sodium chloride 0.9% (100 ml) 100 ML ×2 (16:52→16:53)
[2020-11-21] MEDS: FUROsemide 10 mg/mL SDV 2mL 20 MG IVP (20:23)
[2020-11-21] MEDS: atorvastatin 40 mg Tablet 80 MG PO (20:23)
[2020-11-21] MEDS: oxyCODONE-APAP 5-325 mg Tablet 1 TAB PO (20:48)
[2020-11-22] VITALS (11 sets, daily range): BP systolic 110–131; BP diastolic 59–77; PULSE 59–77; RESP 16–33; TEMP 36.4–37.2; O2SAT 89–94
[2020-11-22 05:33] LABS: Basophils # 0.1 10^3/uL (0.0-0.1); Basophils % 1.5 %; Hematocrit 29.5 % (42.0-52.0); Hemoglobin 9.7 g/dL (11.7-16.6); Lymphocytes # 2.3 10^3/uL (0.8-4.8); Lymphocytes % 44.3 %; Mean Corpuscular HGB Conc 32.9 g/dL (30.0-36.0); Mean Corpuscular Hemoglobin 30.6 pg (28.0-34.0); Mean Corpuscular Volume 93.1 fL (80-94); Monocytes # 0.9 10^3/uL (0.2-0.9); Monocytes % 16.8 %; Neutrophils # 1.95 10^3/uL (1.8-7.7); Neutrophils % 37.2 %; Nucleated Red Blood Cells # 0.1 /100WBC; Red Blood Count 3.17 10^6/uL (4.1-5.3); Red Cell Distribution Width 17.5 % (12.1-15.1); White Blood Count 5.2 10^3/uL (4.0-10.0)
[2020-11-22 05:50] LABS: Alanine Aminotransferase 79 U/L (0-41); Alkaline Phosphatase 68 IU/L (40-130); Anion Gap 13.2 (5-19); Aspartate Amino Transferase 38 U/L (0-40); Blood Urea Nitrogen 32 mg/dL (8-23); Calcium 8.2 mg/dL (8.5-10.5); Carbon Dioxide 25 mmol/L (22-29); Chloride 101 mmol/L (98-107); Globulin 3.3 g/dL (1.3-4.6); Glucose 82 mg/dL (65-115); Osmolality Calculated 286 mOsm/kg (285-295); Potassium 4.2 mmol/L (3.5-5.1); Sodium 135 mmol/L (136-145); Total Bilirubin 0.6 mg/dL (0.15-1.2); Total Protein 6.3 g/dL (6.6-8.7)
[2020-11-22] MEDS: finasteride 5 mg Tablet PO (06:26)
[2020-11-22 07:36] LABS: Platelet Count 27 10^3/cmm (130-400)
[2020-11-22] MEDS: lisinopril 5 mg Tablet PO (08:31)
[2020-11-22] MEDS: pantoprazole DR 40 mg Tablet PO (08:31)
[2020-11-22] MEDS: metoprolol succinate ER (24 HR) 25 mg Tablet 12.5 MG PO (08:31)
--- NOTE | 2020-11-22 08:42 | P.PN_ITS ---
Subjective Subjective: Interval history: Chart reviewed, afebrile, continued thrombocytopenia, had 2010 mL urine output overnight. Sitting up in chair, in good spirits, quite eager to go home. Medrano catheter remains in place, he has had this in the past and is comfortable going home with this. No bleeding overnight. Medications: Reviewed: Yes Medication Review Details: Active Medications Generic Name Dose Route Start Last Admin Trade Name Freq PRN Reason Stop Dose Admin Albuterol/Ipratrop ium 3 ml 11/18/20 07:07 Ipratropium-Albu terol 3 Ml Neb INHALATION Q4H PRN SHORTNESS OF JUANY TH Atorvastatin Calci um 80 mg 11/16/20 21:00 11/21/20 20:23 Atorvastatin 40 Mg Tablet PO 80 mg BEDTIME STARR Administration Finasteride 5 mg 11/16/20 07:00 11/22/20 06:26 Finasteride 5 Mg Tablet PO 5 mg DAILY@07 STARR Administration Hydromorphone HCl 0.5 mg 11/20/20 21:12 11/21/20 05:18 Hydromorphone 1 Mg/Ml Inj 1 Ml IVP 0.5 mg Q4H PRN Administration PAIN Lanolin 1 applic 11/21/20 02:19 11/21/20 02:28 Lanolin Oint 7 G m TOPICAL 1 tube PRN PRN Administration DRYNESS Lidocaine HCl 5 ml 11/18/20 13:01 Lidocaine 2% Vis cous 15 Ml Udc MUCOUS MEM TID PRN before meals Lisinopril 5 mg 11/16/20 09:00 11/22/20 08:31 Lisinopril 5 Mg Tablet PO 5 mg DAILY STARR Administration Metoprolol Succina te 12.5 mg 11/16/20 09:00 11/22/20 08:31 Metoprolol Succi rita Er (24 Hr) 25 Mg Tablet PO 12.5 mg DAILY STARR Administration Oxycodone/Acetamin ophen 1 tab 11/21/20 20:33 11/21/20 20:48 Oxycodone-Apap 5 -325 Mg Tablet PO 1 tab Q4H PRN Administration MODERATE PAIN Pantoprazole Sodiu m 40 mg 11/18/20 18:00 11/22/20 08:[address] 40 Mg Tablet PO 40 mg BID STARR Administration Phenazopyridine HC l 100 mg 11/21/20 02:19 11/21/20 03:33 Phenazopyridine 100 Mg Tablet PO 100 mg TID PRN Administration DYSURIA No Known Allergies Allergy (Unverified 10/11/20 09:59) Vitals/I&O/Wt Last Vital Signs Temp 97.5 F L 11/22/20 07:00 Pulse 76 11/22/20 07:00 Resp 22 H 11/22/20 07:00 BP 120/62 11/22/20 07:00 Pulse Ox 92 11/22/20 07:00 11/21/20 11/22/20 11/22/20 22:59 06:59 14:59 Intake Total 950 / 1550 360 / 360 Output Total 600 / 600 2009 Balance 350 / 950 -[id number] 360 / 360 Physical Exam Const: COMMON NORMALS: no acute distress, patient oriented x3 and alert GENERAL APPEARANCE: cooperative and comfortable ORIENTATION/CONSCIOUSNESS: Yes awake OTHER: -Sitting in chair, looks appropriate for age HENMT: COMMON NORMALS: normocephalic, atraumatic, hearing grossly normal bilaterally and moist oral mucous membranes HEAD & SCALP: normocephalic and atraumatic Eye: COMMON NORMALS: Equal, round and reactive pupils present, EOMs intact bilaterally and conjunctivae normal CONJUNCTIVA: Yes conjunctivae normal PUPIL: Yes Equal, round and reactive pupils present Neck/C-Spine: COMMON NORMALS: full ROM GENERAL: Yes normal visual inspecti on and Yes trachea midline Resp: COMMON NORMALS: normal respiratory effort, No retractions, No use of accessory muscles and clear to auscultation bilaterally EFFORT & INSPECTION: Yes able to speak in complete sentences, Yes symmetric chest movement and No tachypneic AUSCULTATION: clear to auscultation bilaterally OTHER: -on RA Cardio: COMMON NORMALS: regular rate, regular rhythm, S1 normal heart sound present, S2 normal heart sound present and No murmurs present (Cardio) RATE: regular rate RHYTHM: regular rhythm HEART SOUNDS: S1 normal heart sound present and S2 normal heart sound present GI: COMMON NORMALS: Normal to inspection, nondistended, normoactive bowel sounds present, Soft to palpation and non-tender PALPATION: Yes Soft to palpation : BLADDER/KIDNEY EXAM: Yes catheter in place Catheter type (Male): urethral Extremity: COMMON NORMALS: normal to inspection, full ROM and no clubbing, cyanosis or edema; negative for no pedal edema Neuro: COMMON NORMALS: patient oriented x3, moves all extremities, no focal motor deficits, no sensory deficits noted and gait normal SENSORIUM/ORIENTATION: Yes alert Psych: COMMON NORMALS: mental status grossly normal, Normal thought process present, cooperative, normal affect and speech normal SPEECH: Yes normal speech THOUGHT PROCESS: Normal thought process present Skin: COMMON NORMALS: no rashes or lesions noted, no jaundice, no petechiae and no mottling NARRATIVE SKIN EXAM: -quinton appearance of bilateral feet (chronic per patient) GENERAL SKIN EXAM: no rashes or lesions noted Urinary Catheter Management^: Medrano: Cath Placed During This Visit: yes, but has since been removed by the nurse Reason for Continuing Indwelling Catheter: Accurate Measurement of Urinary Output in Critically Ill Patients Urinary Catheter Date of Insertion: 11/19/20 Urinary Catheter Time of Insertion: 10: Date Urinary Catheter Removed: 11/19/20 Time Urinary Catheter Discontinued: 10:17 Data : 11/22/20 05:08 11/22/20 05:08 Micro: Microbiology 11/20/20 07:50 Urine Culture - Preliminary Urine,Clean Catch A&P Assessment and plan (1) Thrombocytopenia: -noted to have severe thrombocytopenia, unclear etiology -peripheral smear with no noted schistocytes -s/p 1 unit of platelets, platelet count remains low though somewhat stable. Transfuse platelets if noted bleeding or <10,000-20,000 -HIT panel pending -HIV, Hep panel negative -CT head with no evidence of hemorrhage -COVID-19 PCR negative -no noted splenomegaly on CT A/P -antiplatelet therapy on hold -Hematology consult by Dr. 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 Clarke Status: Acute (3) A-fib: -on metoprolol, rate controlled -Echo: EF=60%, no RWMA, trace AR, trace MR, trace TN, trace TR -telemetry monitoring -no AC due to thrombocytopenia Status: Acute Qualifiers: Atrial fibrillation type: unspecified Qualified Code(s): I48.91 - Uns pecified atrial fibrillation (4) NSTEMI (non-ST elevated myocardial infarction): -likely secondary to demand ischemia from severe anemia -Echo as noted above Status: Acute (5) Anemia: -normocytic anemia, symptomatic with noted SOB on admission, significantly improved -s/p 4 units of PRBCs, received 2 units of PRBCs on / -continue to monitor H/H -continue to monitor for bleeding Status: Acute Qualifiers: Anemia type: unspecified type Qualified Code(s): D64.9 - Anemia, unspecified Additional A&P Information -cardiac diet as tolerated -GI ppx with PPI -DVT ppx with SCDs -Dispo: home with HH -Code status: FULL code -d/c today Attestations Medical Necessity Statement*: Discharge home today. Time Spent in Patient Care: 16 - 35 minutes (>than 50% of time spent in counselling and/or direct pt care on unit) . Coding Level of Care Code Acute Supervisor Television Chassis Repair for Chg Fwd Exam Comprehensive Diagnoses Thrombocytopenia D69.6 BPH with obstruction/lower urinary tract symptoms N40.1; N13.8 A-fib I48.91 Atrial fibrillation type: unspecified NSTEMI (non-ST elevated myocardial infarction) I21.4 Anemia D64.9 Anemia type: unspecified type
--- NOTE | 2020-11-22 09:26 | PC.CHAP ---
Pastoral Care Encounter/Spiritual Assessment Type of Contact [] Declined security operations center operator visit [] Patient/Family/Request visit [] Outpatient visit [] Follow-up visit [] Physician referral [] Code/Alert [] Routine visit [] Staff referral [] Actively dying [] Patient sleeping [] Family support [] [] Out of room [] Palliative care [] [] Receiving care in room [] Pre-surgical visit [] Trauma [] Long length of stay [x] ICU visit [] Other: Relational/Emotional Strength [] Patient feels connected with others/family/visitors/staff [] Distress [] Loneliness/isolation [] Abandonment Spirituality of Patient [] Person of [place]ora [] Attends Islam of their [place] [] Believes in Prayer [] Reads Bible or Oriental Orthodox materials [] There are Spiritual issues to be addressed Glass Cutter Interventions [x] Prayer [] Active listening [] Non-anxious presence [] Spiritual/emotional support [] Crisis/trauma care [] Spiritual counseling [] Bereavement support [] Provided bereavement packet [] Provided Bible/devotional materials [] Provided toy/stuffed animal, coloring book to patient or family member [] Provided Communion [] Anointing/[place] [] Salvation [x] Completed spiritual assessment [] Other: Impact on Illness or Injury [] Angry [] Fearful [] Anxious [] Often cries [] Exhaustion [] Unable to work [] Unable to attend yarsani [] Unable to walk/stand [] Unable to read [] Unable to drive [] Unable to eat/drink [] Unable to sleep [] Unable to be with family [] Patient intubated [] Other: Summary Time spent with patient
--- NOTE | 2020-11-22 11:49 | P.DS_ITS ---
Discharge Providers Date of Admission: 11/16/20 01:15 Date of Discharge: November 22, 2020 Attending Provider at Admission: Mily Murillo MD Attending Provider at Discharge: Gauri Ryan MD Consults: Hematology, Dr. Gallegos Primary Care Provider: NEHEMIAS Tom Diagnoses at Discharge Discharge Diagnosis (1) Thrombocytopenia: Status: Acute Permanent problem details: -noted to have severe thrombocytopenia, unclear etiology -peripheral smear with no noted schistocytes -s/p 1 bag of platelets, platelet count remains low though somewhat stable. Transfuse platelets if noted bleeding or <10,000-20,000 -HIT panel pending -HIV, Hep panel negative -CT head with no evidence of hemorrhage -COVID-19 PCR negative -no noted splenomegaly on CT A/P -antiplatelet therapy on hold -Hematology consult by Dr. Gallegos appreciated -trial of prednisone 100 mg with minimal improvement, may need bone marrow biopsy -continue to monitor for bleeding (2) BPH with obstruction/lower urinary tract symptoms: Status: Chronic Permanent problem details: -has Medrano catheter in place -on Flomax -follows up with Dr. Clarke (3) A-fib: Status: Acute Permanent problem details: -on metoprolol, rate controlled -Echo: EF=60%, no RWMA, trace AR, trace MR, trace RI, trace TR -telemetry monitoring -no AC due to thrombocytopenia Qualifiers: Atrial fibrillation type: unspecified Qualified Code(s): I48.91 - Unspecified atrial fibrillation (4) NSTEMI (non-ST elevated myocardial infarction): Status: Resolved Permanent problem details: -likely secondary to demand ischemia from severe anemia -Echo as noted above (5) Anemia: Status: Acute Permanent problem details: -normocytic anemia, symptomatic with noted SOB on admission, significantly improved -s/p 4 units of PRBCs, received 2 units of PRBCs on 11/21 -continue to monitor H/H -continue to monitor for bleeding Qualifiers: Anemia type: unspecified type Qualified Code(s): D64.9 - Anemia, unspecified Reason for Visit Reason for Visit: SOB Hospital Course Hospital Course Patient was admitted directly to ICU given noted degree of shortness of breath and was found to have significant thrombocytopenia and anemia requiring transfusion of blood products. He had minimal improvement with trial of diuretics so after initial dose this was not continued; Echo is as noted above. Hematology was consulted due to noted severe thrombocytopenia and recommended trial of oral steroids. Unfortunately this did not make much difference with platelet count remaining stable though low. So far he has received 4 units of PRBCs and 1 bag of platelets. He will require continued follow-up with hematology with likelihood of having bone marrow evaluation done. He initially was noted to have some hematuria which has since resolved and is likely due to traumatic insertion of Medrano catheter. He does have known BPH and has had some intermittent issues with urinary retention so we will maintain Medrano catheter at this time and arrange for appropriate urology follow-up. He was previously on aspirin and Plavix both of which have been discontinued, he has been on this due to known history of carotid endarterectomy. He has been normotensive, rate controlled, afebrile and maintained on room air. He is quite eager to return home. He is comfortable going home with Medrano catheter in place as he has had this in the past. Home health services have been requested for additional assistance and he reports good family support. He has been counseled on need to follow-up with both urology and hematology as well as his primary care provider. We have discussed need to seek medical attention immediately should he notice any bleeding including but not limited to hematuria, blood in stool, epistaxis. Of note he was found to have elevated troponins likely due to demand ischemia from severe anemia. Should there be further concern for possible underlying coronary artery disease he may benefit from further evaluation including stress testing. Physical Exam Const: COMMON NORMALS: no acute distress, patient oriented x3 and alert GENERAL APPEARANCE: cooperative and comfortable ORIENTATION/CONSCIOUSNESS: Yes awake OTHER: -Sitting in chair, looks appropriate for age HENMT: COMMON NORMALS: normocephalic, atraumatic, hearing grossly normal bilaterally and moist oral mucous membranes HEAD & SCALP: normocephalic and atraumatic Eye: COMMON NORMALS: Equal, round and reactive pupils present, EOMs intact bilaterally and conjunctivae normal CONJUNCTIVA: Yes conjunctivae normal PUPIL: Yes Equal, round and reactive pupils present Neck/C-Spine: COMMON NORMALS: full ROM GENERAL: Yes normal visual inspection and Yes trachea midline Resp: COMMON NORMALS: normal respiratory effort, No retractions, No use of accessory muscles and clear to auscultation bilaterally EFFORT & INSPECTION: Yes able to speak in complete sentences, Yes symmetric chest movement and No tachypneic AUSCULTATION: clear to auscultation bilaterally OTHER: -on RA Cardio: COMMON NORMALS: regular rate, regular rhythm, S1 normal heart sound present, S2 normal heart sound present and No murmurs present (Cardio) RATE: regular rate RHYTHM: regular rhythm HEART SOUNDS: S1 normal heart sound present and S2 normal heart sound present GI: COMMON NORMALS: Normal to inspection, nondistended, normoactive bowel sounds present, Soft to palpation and non-tender PALPATION: Yes Soft to palpation : BLADDER/KIDNEY EXAM: Yes catheter in place Extremity: COMMON NORMALS: normal to inspection, full ROM and no clubbing, cyanosis or edema; negative for no pedal edema Neuro: COMMON NORMALS: patient oriented x3, moves all extremities, no focal motor deficits, no sensory deficits noted and gait normal SENSORIUM/ORIENTATION: Yes alert Psych: COMMON NORMALS: mental status grossly normal, Normal thought process present, cooperative, normal affect and speech normal SPEECH: Yes normal speech THOUGHT PROCESS: Normal thought process present Skin: COMMON NORMALS: no rashes or lesions noted, no jaundice, no petechiae and no mottling NARRATIVE SKIN EXAM: -quinton appearance of bilateral feet (chronic per patient) GENERAL SKIN EXAM: no rashes or lesions noted Urinary Catheter Management^: Medrano: Cath Placed During This Visit: yes, but has since been removed by the nurse Reason for Continuing Indwelling Catheter: Accurate Measurement of Urinary Output in Critically Ill Patients Urinary Catheter Date of Insertion: 11/19/20 Urinary Catheter Time of Insertion: 10:21 Date Urinary Catheter Removed: 11/19/20 Time Urinary Catheter Discontinued: 10:17 Discharge Data Data Completed and Pending: Completed Studies During Hospitalization Category Date Time Status CT angio chest PE protcl 45809 Urge nt Cat Scan 11/16/20 00:[address] head wo con* 7 0450 Routine Cat Scan 11/17/20 13:43 Completed XR chest 1[place] [id number] Urgent Exams 11/15/20 22:40 Completed CV echo complete* [id number] Routine Ultrasound 11/16/20 02:03 Completed Pending at discharge Category Date Time Status CBC Auto Diff [Co mplete Blood Count w/Auto] AM LABS Lab 11/23/20 04:00 Ordered CMP [Comprehensiv e Metabolic Panel] AM LABS Lab 11/23/20 04:00 Ordered Heparin Induced T hrombocytopen Rout ine Lab 11/16/20 10:30 Received Leukocyte Reduced RBC Routine Lab 11/21/20 10:30 Results Miscellaneous Marlys t Routine Lab 11/17/20 04:06 Received Miscellaneous Marlys t Routine Lab 11/18/20 04:06 Received Type and Screen R outine Lab 11/21/20 10:30 Results Labs from last 24 hours 11/22/20 11/22/20 11/21/20 05:08 05:08 10:30 WBC 5.2 RBC 3.17 L Hgb 9.7 L Hct 29.5 L MCV 93.1 MCH 30.6 MCHC 32.9 RDW 17.5 H Plt Count 27 L* MPV 12.0 H Neut % (Auto) 37.2 Lymph % (Auto) 44.3 [place] % (Auto) 16.8 Eos % (Auto) 0.0 Baso % (Auto) 1.5 Neut # (Auto) 1.95 Lymph # (Auto) 2.3 [place] # (Auto) 0.9 Eos # (Auto) 0.0 Baso # (Auto) 0.1 Nucleated RBC % (a uto) 1.0 Nucleated RBCs # 0.1 Sodium 135 L Potassium 4.2 Chloride 101 Carbon Dioxide 25 Anion Gap 13.2 BUN 32 H Creatinine 1.2 GFR Calculation Not Reportable Glucose 82 Calculated Osmolal ity 286 Calcium 8.2 L Total Bilirubin 0.6 AST 38 ALT 79 H Alkaline Phosphata se 68 Total Protein 6.3 L Albumin 3.0 L Globulin 3.3 Blood Type B Positive Rho(D) Type Positive Antibody Screen Negative Crossmatch See Detail 11/16/20 10:30 WBC RBC Hgb Hct MCV MCH MCHC RDW Plt Count MPV Neut % (Auto) Lymph % (Auto) [place] % (Auto) Eos % (Auto) Baso % (Auto) Neut # (Auto) Lymph # (Auto) [place] # (Auto) Eos # (Auto) Baso # (Auto) Nucleated RBC % (a uto) Nucleated RBCs # Sodium Potassium Chloride Carbon Dioxide Anion Gap BUN Creatinine GFR Calculation Glucose Calculated Osmolal ity Calcium Total Bilirubin AST ALT Alkaline Phosphata se Total Protein Albumin Globulin Blood Type Rho(D) Type Antibody Screen Crossmatch See Detail Vitals: Last Vital Signs Temp 97.5 F L 11/22/20 07:00 Pulse 76 11/22/20 07:00 Resp 22 H 11/22/20 07:00 BP 120/62 11/22/20 07:00 Pulse Ox 92 11/22/20 07:00 Discharge Plan Discharge Patient Disposition: Home Condition: Stable Prescriptions: New atorvastatin 40 mg Tablet 40 mg PO BEDTIME Qty: 30 RF: 0 phenazopyridine 100 mg Tablet 100 mg PO TID PRN (Reason: Dysuria) Qty: 30 RF: 0 pantoprazole 40 mg Tablet,Delayed Release (Dr/Ec) 40 mg PO BID Qty: 60 RF: 0 lisinopril 5 mg Tablet 5 mg PO DAILY Qty: 30 RF: 0 metoprolol succinate 25 mg Tablet Extended Release 24 Hr 12.5 mg PO DAILY Qty: 30 RF: 0 Continued finasteride 5 mg tablet 5 mg PO DAILY@07 RF: 0 Discontinued aspirin 81 mg Tablet,Chewable 81 mg PO DAILY@07 RF: 0 cephalexin 500 mg capsule 500 mg PO Q6H 7 Days Qty: 28 RF: 0 Discharge Orders: Discharge Order (Routine); Ordered 11/22/20 Ordered By: Gauri Ryan Referrals: Dee Pal FNP [Primary Care Provider] - 4-7 days Rodney Clarke MD [Physician] - 1 week (Urinary retention) Haley Gallegos MD [Staff Physician] - 1 week (Noted to have thrombocytopenia, not responsive to steroids. ) Discharge Diet: Advance as tolerated and Regular Discharge Activity: Increase activity as tolerated Activity Restrictions/Additional Instructions: -Please note that you now have an indwelling Medrano catheter in place. Please monitor for any blood in your urine and keep this in place until you follow up with Dr. Clarke. -Please seek medical attention immediately if you have bleeding from any source including nose bleeding, blood in urine or stool -Please STOP taking Aspirin due to bleeding risk Discharge Attestations Time Spent in Discharge Care*: greater than 30 min Quality Metrics Clinical Quality Measures During this hospital stay, did patient experience: None Coding Level of Care Code Acute Supervisor Accounts Receivable for Chg Fwd Diagnoses Thrombocytopenia D69.6 BPH with obstruction/lower urinary tract symptoms N40.1; N13.8 A-fib I48.91 Atrial fibrillation type: unspecified NSTEMI (non-ST elevated myocardial infarction) I21.4 Anemia D64.9 Anemia type: unspecified type
--- NOTE | 2020-11-22 14:14 | PC.NURSE ---
coming from [place] to get pt.
--- NOTE | 2020-11-22 15:28 | PC.NURSE ---
to apple picker about 1630. dressed and to waiting room
--- NOTE | 2020-11-22 15:35 | PC.NURSE ---
discharged with belongings in waiting room with pt.
--- NOTE | 2020-11-22 16:38 | PC.NURSE ---
remains in waiting room waiting on . no c/o.
--- NOTE | 2020-11-22 16:39 | PM.EVENT ---
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 Informed hematology oncology Dr. Gallegos. As the patient has already been discharged, Dr. Gallegos reported that oncology will follow up on report as well as getting the patient further treatment expeditiously.
--- NOTE | 2020-11-22 16:47 | PC.NURSE ---
picked pt. up.
[2020-11-26 14:27] LABS: Miscellaneous Test See Scanned Lab Rpt
== END 2020-11-22 15:32 | disposition home or self-care (01) | DRG 813 ==
LOC: ER 23:16 → ICU 11-16 01:25 → CSU 11-18 06:30 → ICU 11-20 21:09
PROVIDERS: Internal Medicine; Admitting Provider Internal Medicine; Emergency Provider Emergency Medicine; PCP Nurse Practitioner Family; Visit Provider Family Medicine
DX: D69.6 Thrombocytopenia, unspecified (principal); I21.A1 Myocardial infarction type 2; N13.8 Other obstructive and reflux uropathy; T83.83XA Hemorrhage due to genitourinary prosthetic devices, implants and grafts, initial encounter; N40.1 Benign prostatic hyperplasia with lower urinary tract symptoms; R33.8 Other retention of urine; Z87.442 Personal history of urinary calculi; I25.10 Atherosclerotic heart disease of native coronary artery without angina pectoris; Z95.5 Presence of coronary angioplasty implant and graft; F17.210 Nicotine dependence, cigarettes, uncomplicated; I48.91 Unspecified atrial fibrillation; R31.9 Hematuria, unspecified; Y73.1 Therapeutic (nonsurgical) and rehabilitative gastroenterology and urology devices associated with adverse incidents
CPT/HCPCS: 12345; 36415; 36430; 36600; 51702; 51798; 70450; 71045; 71275; 80048; 80053; 80074; 80500; 81001; 82274; 82607; 82728; 82805; 83010; 83540; 83550; 83615; 83880; 84484; 85007; 85025; 85045; 85610; 85651; 86140; 86803; 86850; 86900; 86920; 87086; 87426; 87635; 87806; 93005; 93306; 94664; 99283; J0456; J1170; J1940; J2920; J7050; J7512; P9016; Q3014; Q9967

== ENCOUNTER 2020-11-23 13:08 | Emergency (ER) | payer MEDICARE, SELFPAY ==
[2020-11-23] VITALS (12 sets, daily range): BP systolic 83–141; BP diastolic 49–75; PULSE 66–85; RESP 12–20; TEMP 37.7; O2SAT 94–100; BMI 26.4
--- NOTE | 2020-11-23 13:25 | XR_ITS ---
WS: [id number] PORTABLE CHEST HISTORY: hypotension, fever COMPARISON: 11/15/2020 Moderate pulmonary hyperexpansion. Extensive bullous changes in the upper lung field bilaterally. Com pression of the lung markings at the lung bases. No pneumonia. Normal vasculature. No pleural effusio n or pneumothorax. Cardiac size: Normal. Mediastinum/Aorta: Mild atherosclerosis aorta. No osseous abnormality seen. XR/XR chest 1V portable [id number] IMPRESSION: Severe emphysema. No pneumonia.
--- NOTE | 2020-11-23 13:26 | ECG_ITS ---
[facility] Test Date: 2020-11-23 Pat Name: Ladarius Lai Department: Room: Gender: Male Central Office Repairer: : 1950 Requested By: Luis Cuellar I Order Number: [id number] Reading MD: THOMAS WYNN Measurements Intervals [place] Rate: 81 P: 57 [place]: 135 QRS: 48 QRSD: 86 T: 53 QT: 367 QTc: 428 Interpretive Statements SINUS RHYTHM Compared to ECG 11/16/2020 05:59:14 Atrial fibrillation no longer present T-wave abnormality no longer present Electronically Signed On 11-23-2020 19:57:58 CERTIFIED REHABILITATION COUNSELOR by THOMAS WYNN [id number]
--- NOTE | 2020-11-23 13:31 | W.ED.GENADLT ---
HPI - General Adult General: Chief complaint: General Medical Stated complaint: GENERALIZED PAIN, HYPOTENSION Time Seen by Provider: 11/23/20 13:09 Source: patient, EMS and old records reviewed Mode of arrival: EMS Limitations: no limitations History of Present Illness: HPI narrative: Patient is a 70-year-old male who was discharged from this facility yesterday after admission for anemia, severe thrombocytopenia requiring transfusion of 1 unit of platelets. After discharge he is flow cytometry that have been done earlier was worrisome for possible myeloid neoplasm and the plan is to schedule him for some outpatient oncology follow-up. The patient states that when he woke up this morning he had generalized weakness as well as generalized pain. He has no other symptoms, no chest pain, no difficulty breathing, no dizziness. It appears his contacted the oncologist office who advised that he come to the emergency department for evaluation. He was noted to be hypotensive by EMS after he had received a total of 0.5 mg Dilaudid, although they said the hypotension developed about 30 minutes after the medications were given. He was given a total of 1 L Plasma-Lyte as well as to push doses of epinephrine. Associated symptoms: Deny dyspnea, headache(s), nausea, rash, palpitations or vomiting Review of Systems General: Reports: 10 or more systems reviewed and unremarkable except in HPI and below Const: Reports: body aches and fatigue; Denies: fever(s) or chills Eyes: Denies: change in vision or blurry vision ENMT: Denies: throat pain, enlarged tonsils, odynophagia, hoarseness, mouth pain or swelling of lips/tongue Card: Denies: palpitations, irregular heart rhythm, edema or swelling of feet/ankles Resp: Denies: dyspnea, productive cough or non-productive cough GI: Denies: abdominal pain, nausea or vomiting : Denies: flank pain, dysuria, urinary frequency, urinary urgency or urinary hesitancy Musc: Reports: joint pain and muscle cramps; Denies: neck pain, back pain or extremity swelling Skin/Breast: Denies: rash, pruritus or erythema Neuro: Reports: other (generalized weakness); Denies: headache(s), numbness in extremities or weakness in extremities Endo: Denies: polyuria, polydipsia or tired all the time [facility] ED PFSH: Medical History (Reviewed 11/23/20 @ 13:45 by Luis Cuellar MD, [facility] [place]) A-fib -on metoprolol, rate controlled -Echo: EF=60%, no RWMA, trace AR, trace MR, trace NE, trace TR -telemetry monitoring -no AC due to thrombocytopenia Acute cystitis Bladder stone BPH with obstruction/lower urinary tract symptoms -has Medrano catheter in place -on Flomax -follows up with Dr. Clarke Elevated troponin Gross hematuria NSTEMI (non-ST elevated myocardial infarction) -likely secondary to demand ischemia from severe anemia -Echo as noted above Urinary retention Surgical History (Reviewed 11/23/20 @ 13:45 by Luis Cuellar MD, [facility] [place]) Bladder calculi CYSTOLITHOLAPAXY H/O heart artery stent History of left-sided carotid endarterectomy History of repair of aneurysm of abdominal aorta using endovascular stent graft Family History (Reviewed 11/23/20 @ 13:45 by Luis Cuellar MD, [facility] [place]) Mother , AT AGE 82 ALZHEIMERS Alzheimer's dementia Father , AT AGE 82 OLD AGE No problems noted. Social History (Reviewed 11/23/20 @ 13:45 by Luis Cuellar MD, [facility] [place]) Smoking and tobacco status: current some day smoker Alcohol intake: current Alcohol intake frequency: few times a month Adopted: No Caregiver/support person: No Lives independently: No Household members: spouse Marital status: Current occupational status: retired History of recent travel: No Physical Exam Const: COMMON NORMALS: no acute distress, average body habitus, patient oriented x3, no limitations, healthy appearing, alert and well nourished HENMT: COMMON NORMALS: normocephalic, atraumatic and moist oral mucous membranes HEAD & SCALP: normocephalic and atraumatic Neck/C-Spine: COMMON NORMALS: no meningeal signs and no JVD Resp: COMMON NORMALS: normal respiratory effort, No retractions, No use of accessory muscles, clear to auscultation bilaterally and percussion normal AUSCULTATION: clear to auscultation bilaterally PERCUSSION: percussion normal Cardio: COMMON NORMALS: no JVD, regular rate, regular rhythm, S1 normal heart sound present, S2 normal heart sound present, No gallops present (Cardio), No clicks present (Cardio), No murmurs present (Cardio), No rub (Cardio) and Peripheral pulses 2+ throughout RATE: regular rate RHYTHM: regular rhythm HEART SOUNDS: S1 normal heart sound present and S2 normal heart sound present PERIPHERAL PULSES: Peripheral pulses 2+ throughout GI: COMMON NORMALS: Normal to inspection, nondistended, normoactive bowel sounds present, Soft to palpation, non-tender, No hepatosplenomegaly present, no masses and no bruits PALPATION: Yes Soft to palpation and Yes No hepatosplenomegaly present Extremity: COMMON NORMALS: normal to inspection, full ROM, capillary refill normal, no calf tenderness and no pedal edema Neuro: COMMON NORMALS: patient oriented x3 SENSORIUM/ORIENTATION: Yes alert MENINGEAL SIGNS: Yes no meningeal signs Skin: COMMON NORMALS: no rashes or lesions noted, no wounds, turgor normal, no jaundice, no petechiae and no mottling GENERAL SKIN EXAM: no rashes or lesions noted and turgor normal Course Consultations: Consultation #1: Discussed the patient with Dr. Gallegos, oncology and he says that this patient needs to be transferred to [facility] in [place] to be seen by oncology as he will need a bone marrow biopsy. He has pancytopenia, was given steroids for possible ITP but there was no change. Needed platelet transfusion and a flow cytometry showed significantly increased myeloblasts with differentials including acute leukemia or MDS with excess blasts. Because of this he will benefit from a bone marrow biopsy and management at [place]. Consultation #2: Patient kindly accepted at [facility] under the care of Dr. Maguire. Time: 15:45 Vital Signs: Vital signs: Vital Signs Temperature 99.9 F H 11/23/20 13:23 Pulse Rate 85 11/23/20 21:30 Respiratory Rate 12 11/23/20 21:30 Blood Pressure 141/75 11/23/20 21:30 Pulse Oximetry 94 11/23/20 21:30 MDM - General Adult MDM Narrative: Medical decision making narrative: 70-year-old male who was recently discharged yesterday from this facility after admission for anemia, generalized weakness. At that time he was found to be pancytopenic with severe thrombocytopenia requiring platelet transfusion. Today he woke up and he had generalized weakness and generalized pain. Evaluation here shows he is still anemic and thrombocytopenic. His troponins are also markedly elevated but better than they were during admission. He was hypotensive after he was given Dilaudid by the EMS crew and had a low-grade fever. Because of this he was given intravenous cefepime. UA was also positive for UTI. Procalcitonin was elevated showing a possible pneumonia. Blood pressure improved with fluids. He was transferred to [facility] in [place] for further management. Medical Records: Attestation: I reviewed the patient's medical records. Lab Data: Attestation: I reviewed the patient's lab results. Labs: Lab Results 11/23/20 11/23/20 11/23/20 Range/Units 13:20 13:20 13:20 WBC 4.9 (4.0-10.0) 10^3/ uL RBC 2.87 L (4.1-5.3) 10^6/u L Hgb 8.8 L (11.7-16.6) g/dL Hct 27.3 L (42.0-52.0) % MCV 95.1 H (80-94) fL MCH 30.7 (28.0-34.0) pg MCHC 32.2 (30.0-36.0) g/dL RDW 16.8 H (12.1-15.1) % Plt Count 25 L* (130-400) 10^3/c mm MPV Not Reportable Neut % (Auto) 46.9 % Lymph % (Auto) 34.8 % Treasure % (Auto) 15.5 % Eos % (Auto) 0.2 % Baso % (Auto) 1.6 % Neut # (Auto) 2.30 (1.8-7.7) 10^3/u L Lymph # (Auto) 1.7 (0.8-4.8) 10^3/u L Treasure # (Auto) 0.8 (0.2-0.9) 10^3/u L Eos # (Auto) 0.0 (0.0-0.8) 10^3/u L Baso # (Auto) 0.1 (0.0-0.1) 10^3/u L Nucleated RBC % (a uto) 0.6 % Nucleated RBCs # 0.0 /100WBC PT 17.40 H (12.1-14.9) SECO NDS INR 1.38 H (0.8-1.2) D-Dimer 19.77 H (0-0.59) ug/mIFE U Sodium 132 L (136-145) mmol/L Potassium 3.9 (3.5-5.1) mmol/L Chloride 97 L (98-107) mmol/L Carbon Dioxide 24 (22-29) mmol/L Anion Gap 14.9 (5-19) BUN 28 H (8-23) mg/dL Creatinine 1.5 H (0.7-1.2) mg/dL GFR Calculation Not Reportable Glucose 82 (65-115) mg/dL Calculated Osmolal ity 279 L (285-295) mOsm/k g Lactate (0.5-2.2) mmol/L Calcium 7.3 L (8.5-10.5) mg/dL Total Bilirubin 1.2 (0.15-1.2) mg/dL AST 50 H (0-40) U/L ALT 68 H (0-41) U/L Alkaline Phosphata se 79 (40-130) IU/L Troponin T Baselin e (0-15) ng/L Troponin T 120 Min [place] (0-15) ng/L Delta Troponin T (0-10) ABS# Troponin T Hi Sens 6Hr (0-15) ng/L Troponin T Hi Sens 6Hr Delta (0-12) ng/L C-Reactive Protein 270.0 H (0.0-4.9) mg/L NT-Pro-B Natriuret Pep 3541 H (0-125) pg/mL Total Protein 5.4 L (6.6-8.7) g/dL Albumin 2.7 L (3.5-5.2) g/dL Globulin 2.7 (1.3-4.6) g/dL Lipase 117 H (13-60) U/L Procalcitonin 1.37 H (0-0.5) ng/mL Urine Color (Yellow) Urine Appearance (CLEAR) Urine pH (5-7) Ur Specific Gravit y (1.005-1.030) Urine Protein (Negative) Urine Glucose (UA) (Normal) Urine Ketones (Negative) Urine Blood (Negative) Urine Nitrate (Negative) Urine Bilirubin (Negative) Urine Urobilinogen (Negative) mg/dL Ur Leukocyte Sayda ase (Negative) Urine RBC (0-2) /hpf Urine WBC (0-5) /hpf Ur Squamous Epith Cells (0-5) /hpf Amorphous Sediment Urine Bacteria (NONE) /hpf Urine Mucus /hpf SARS-CoV-2 Ag (Rap id) (Negative) 11/23/20 11/23/20 11/23/20 Range/Units 13:20 13:20 15:37 WBC (4.0-10.0) 10^3/ uL RBC (4.1-5.3) 10^6/u L Hgb (11.7-16.6) g/dL Hct (42.0-52.0) % MCV (80-94) fL MCH (28.0-34.0) pg MCHC (30.0-36.0) g/dL RDW (12.1-15.1) % Plt Count (130-400) 10^3/c mm MPV Neut % (Auto) % Lymph % (Auto) % Treasure % (Auto) % Eos % (Auto) % Baso % (Auto) % Neut # (Auto) (1.8-7.7) 10^3/u L Lymph # (Auto) (0.8-4.8) 10^3/u L Treasure # (Auto) (0.2-0.9) 10^3/u L Eos # (Auto) (0.0-0.8) 10^3/u L Baso # (Auto) (0.0-0.1) 10^3/u L Nucleated RBC % (a uto) % Nucleated RBCs # /100WBC PT (12.1-14.9) SECO NDS INR (0.8-1.2) D-Dimer (0-0.59) ug/mIFE U Sodium (136-145) mmol/L Potassium (3.5-5.1) mmol/L Chloride (98-107) mmol/L Carbon Dioxide (22-29) mmol/L Anion Gap (5-19) BUN (8-23) mg/dL Creatinine (0.7-1.2) mg/dL GFR Calculation Glucose (65-115) mg/dL Calculated Osmolal ity (285-295) mOsm/k g Lactate 1.3 (0.5-2.2) mmol/L Calcium (8.5-10.5) mg/dL Total Bilirubin (0.15-1.2) mg/dL AST (0-40) U/L ALT (0-41) U/L Alkaline Phosphata se (40-130) IU/L Troponin T Baselin e 516 H* (0-15) ng/L Troponin T 120 Min [place] 500.6 H (0-15) ng/L Delta Troponin T -15.4 L (0-10) ABS# Troponin T Hi Sens 6Hr (0-15) ng/L Troponin T Hi Sens 6Hr Delta (0-12) ng/L C-Reactive Protein (0.0-4.9) mg/L NT-Pro-B Natriuret Pep (0-125) pg/mL Total Protein (6.6-8.7) g/dL Albumin (3.5-5.2) g/dL Globulin (1.3-4.6) g/dL Lipase (13-60) U/L Procalcitonin (0-0.5) ng/mL Urine Color (Yellow) Urine Appearance (CLEAR) Urine pH (5-7) Ur Specific Gravit y (1.005-1.030) Urine Protein (Negative) Urine Glucose (UA) (Normal) Urine Ketones (Negative) Urine Blood (Negative) Urine Nitrate (Negative) Urine Bilirubin (Negative) Urine Urobilinogen (Negative) mg/dL Ur Leukocyte Sayda ase (Negative) Urine RBC (0-2) /hpf Urine WBC (0-5) /hpf Ur Squamous Epith Cells (0-5) /hpf Amorphous Sediment Urine Bacteria (NONE) /hpf Urine Mucus /hpf SARS-CoV-2 Ag (Rap id) (Negative) 11/23/20 11/23/20 11/23/20 Range/Units 15:37 17:54 19:12 WBC (4.0-10.0) 10^3/ uL RBC (4.1-5.3) 10^6/u L Hgb (11.7-16.6) g/dL Hct (42.0-52.0) % MCV (80-94) fL MCH (28.0-34.0) pg MCHC (30.0-36.0) g/dL RDW (12.1-15.1) % Plt Count (130-400) 10^3/c mm MPV Neut % (Auto) % Lymph % (Auto) % Treasure % (Auto) % Eos % (Auto) % Baso % (Auto) % Neut # (Auto) (1.8-7.7) 10^3/u L Lymph # (Auto) (0.8-4.8) 10^3/u L Treasure # (Auto) (0.2-0.9) 10^3/u L Eos # (Auto) (0.0-0.8) 10^3/u L Baso # (Auto) (0.0-0.1) 10^3/u L Nucleated RBC % (a uto) % Nucleated RBCs # /100WBC PT (12.1-14.9) SECO NDS INR (0.8-1.2) D-Dimer (0-0.59) ug/mIFE U Sodium (136-145) mmol/L Potassium (3.5-5.1) mmol/L Chloride (98-107) mmol/L Carbon Dioxide (22-29) mmol/L Anion Gap (5-19) BUN (8-23) mg/dL Creatinine (0.7-1.2) mg/dL GFR Calculation Glucose (65-115) mg/dL Calculated Osmolal ity (285-295) mOsm/k g Lactate (0.5-2.2) mmol/L Calcium (8.5-10.5) mg/dL Total Bilirubin (0.15-1.2) mg/dL AST (0-40) U/L ALT (0-41) U/L Alkaline Phosphata se (40-130) IU/L Troponin T Baselin e (0-15) ng/L Troponin T 120 Min [place] (0-15) ng/L Delta Troponin T (0-10) ABS# Troponin T Hi Sens 6Hr 472.1 H (0-15) ng/L Troponin T Hi Sens 6Hr Delta -43.9 L (0-12) ng/L C-Reactive Protein (0.0-4.9) mg/L NT-Pro-B Natriuret Pep (0-125) pg/mL Total Protein (6.6-8.7) g/dL Albumin (3.5-5.2) g/dL Globulin (1.3-4.6) g/dL Lipase (13-60) U/L Procalcitonin (0-0.5) ng/mL Urine Color [place] (Yellow) Urine Appearance Sl hazy (CLEAR) Urine pH 5.0 (5-7) Ur Specific Gravit y 1.020 (1.005-1.030) Urine Protein 1+ H (Negative) Urine Glucose (UA) Norm (Normal) Urine Ketones Negative (Negative) Urine Blood 3+ H (Negative) Urine Nitrate Positive H (Negative) Urine Bilirubin 1+ H (Negative) Urine Urobilinogen 4 H (Negative) mg/dL Ur Leukocyte Sayda ase Negative (Negative) Urine RBC 80-100 H (0-2) /hpf Urine WBC None (0-5) /hpf Ur Squamous Epith Cells 0-4 H (0-5) /hpf Amorphous Sediment Not Reportable Urine Bacteria 3+ H (NONE) /hpf Urine Mucus 1+ /hpf SARS-CoV-2 Ag (Rap id) Negative (Negative) Imaging Data^: CXR: Attestation: I personally reviewed and interpreted this imaging study as follows: Radiologist's impression: [address] [address] XRay Report Signed Patient: Ladarius Lai #: [id number] : 9Acc#:[id number] Age/Sex: 70 / MADM Date: 11/23/20 Loc: [facility]/Bed: Attending Dr: Ordering Provider/Ordering MD: Luis Cuellar MD, [facility] [place] Date of Service: 11/23/20 Procedure(s): XR chest 1V portable 00075 Accession Number(s): [id number] Report Number: [id number] WS: [id number] PORTABLE CHEST HISTORY: hypotension, fever COMPARISON: 11/15/2020 Moderate pulmonary hyperexpansion. Extensive bullous changes in the upper lung field bilaterally. Compression of the lung markings at the lung bases. No pneumonia. Normal vasculature. No pleural effusion or pneumothorax. Cardiac size: Normal. Mediastinum/Aorta: Mild atherosclerosis aorta. No osseous abnormality seen. XR/XR chest 1V portable [id number] IMPRESSION: Severe emphysema. No pneumonia. Dictated By:Megan Denise DO Signed By:Megan Denise DOSigned Date/Time:11/23/20 1343 DD/ 1342 EKG Data^: EKG 1: Attestation: I personally reviewed and interpreted this EKG as follows: EKG interpretation date: 11/23/20 EKG interpretation time: 13:22 Prior EKG tracings: available for review Interpretation: Normal sinus rhythm. Heart rate 81 bpm. Normal axis. No ST changes. Computer generated interpretation: Chest X-Ray 11/23/20 13:25 IMPRESSION: Severe emphysema. No pneumonia. EKG 2: Attestation: I personally reviewed and interpreted this EKG as follows: EKG interpretation date: 11/23/20 EKG interpretation time: 15:30 Prior EKG tracings: available for review Interpretation: NSR HR 79 BPM Normal axis No ST changes Computer generated interpretation: Chest X-Ray 11/23/20 13:25 IMPRESSION: Severe emphysema. No pneumonia. Discharge Plan Discharge Patient Disposition: Xfer Short-Term Hosp Clinical Impression: Pancytopenia, Elevated troponin, Acute UTI Condition: Good Discharge Orders: Transfer Out of Facility (Order); Ordered 11/23/20 Ordered By: Luis Cuellar Referrals: Dee Pal FNP [Primary Care Provider] - Coding Level of Care Code ED Food Operations Manager for Chg Fwd Exam Comprehensive
[2020-11-23 13:47] LABS: Basophils # 0.1 10^3/uL (0.0-0.1); Basophils % 1.6 %; Eosinophils % 0.2 %; Hematocrit 27.3 % (42.0-52.0); Hemoglobin 8.8 g/dL (11.7-16.6); Lymphocytes # 1.7 10^3/uL (0.8-4.8); Lymphocytes % 34.8 %; Mean Corpuscular HGB Conc 32.2 g/dL (30.0-36.0); Mean Corpuscular Hemoglobin 30.7 pg (28.0-34.0); Mean Corpuscular Volume 95.1 fL (80-94); Monocytes # 0.8 10^3/uL (0.2-0.9); Monocytes % 15.5 %; Neutrophils % 46.9 %; Nucleated Red Blood Cells % 0.6 %; Red Blood Count 2.87 10^6/uL (4.1-5.3); Red Cell Distribution Width 16.8 % (12.1-15.1); White Blood Count 4.9 10^3/uL (4.0-10.0)
[2020-11-23 14:22] LABS: Lactate (Lactic Acid level) 1.3 mmol/L (0.5-2.2)
[2020-11-23 14:26] LABS: INR 1.38 (0.8-1.2)
[2020-11-23 14:32] LABS: NT Pro B Type Natriuretic Pept 3541 pg/mL (0-125); Procalcitonin 1.37 ng/mL (0-0.5)
[2020-11-23 14:35] LABS: D Dimer 19.77 ug/mIFEU (0-0.59); Platelet Count 25 10^3/cmm (130-400); Troponin(5th) Baseline 516 ng/L (0-15)
[2020-11-23 14:36] LABS: Slide Review Slide Review Perform
[2020-11-23 14:43] LABS: Alanine Aminotransferase 68 U/L (0-41); Albumin Level 2.7 g/dL (3.5-5.2); Alkaline Phosphatase 79 IU/L (40-130); Anion Gap 14.9 (5-19); Aspartate Amino Transferase 50 U/L (0-40); Blood Urea Nitrogen 28 mg/dL (8-23); Calcium 7.3 mg/dL (8.5-10.5); Carbon Dioxide 24 mmol/L (22-29); Chloride 97 mmol/L (98-107); Globulin 2.7 g/dL (1.3-4.6); Glucose 82 mg/dL (65-115); Lipase 117 U/L (13-60); Osmolality Calculated 279 mOsm/kg (285-295); Potassium 3.9 mmol/L (3.5-5.1); Sodium 132 mmol/L (136-145); Total Bilirubin 1.2 mg/dL (0.15-1.2); Total Protein 5.4 g/dL (6.6-8.7)
--- NOTE | 2020-11-23 15:26 | ECG_ITS ---
[facility] Test Date: 2020-11-23 Pat Name: Ladarius Lai Department: Room: Gender: Male Sheet Sorter: : 1950 Requested By: Luis Cuellar I Order Number: [id number] Reading MD: THOMAS WYNN Measurements Intervals [place] Rate: 79 P: 45 IN: 129 QRS: 28 QRSD: 94 T: 40 QT: 367 QTc: 423 Interpretive Statements SINUS RHYTHM Compared to ECG 11/23/2020 13:22:33 ST (T wave) deviation no longer present Electronically Signed On 11-23-2020 20:00:31 INTENSIVIST by THOMAS WYNN [email or web address]
[2020-11-23] MEDS: cefepime 2,000 MG in sodium chloride 0.9% (plus) 50 ML 100 MG IV (16:20)
[2020-11-23] MEDS: sodium chloride 0.9% 1,000 ML 999 ML IV (16:24)
[2020-11-23 16:57] LABS: Urine Color Orange (Yellow)
[2020-11-23 16:58] LABS: Add Urine Microscopic? YES; Bilirubin Urine 1+ (Negative); Blood Urine 3+ (Negative); Glucose Urine UA Norm (Normal); Ketones Urine Negative (Negative); Leukocyte Esterase Urine Negative (Negative); Nitrate Urine Positive (Negative); Protein Urine 1+ (Negative); Urine Appearance SL Hazy (CLEAR); Urobilinogen Urine 4 mg/dL (Negative)
[2020-11-23 17:06] LABS: Troponin 5 2HR 500.6 ng/L (0-15); Troponin 5 2HR Delta -15.4 ABS# (0-10)
[2020-11-23 17:10] LABS: RBC Urine 80-100 /hpf (0-2); Squamous Epithelial Cell Urine 0-4 /hpf (0-5)
[2020-11-23 17:11] LABS: Add Urine Culture? Yes; Bacteria Urine 3+ /hpf; Mucus Urine 1+ /hpf
[2020-11-23 18:38] LABS: SARS Covid-2 Antigen Negative (Negative)
[2020-11-23 19:54] LABS: Troponin 5 6HR 472.1 ng/L (0-15)
--- NOTE | 2020-11-23 19:57 | PC.NURSE ---
6 hr trop 472/1, delta trop -43.9
== END 2020-11-23 21:51 | disposition short-term general hospital (02) ==
PROVIDERS: Emergency Provider Family Medicine; PCP Nurse Practitioner Family
DX: D61.818 Other pancytopenia (principal); N39.0 Urinary tract infection, site not specified; R77.8 Other specified abnormalities of plasma proteins; I48.91 Unspecified atrial fibrillation; I25.2 Old myocardial infarction; F17.210 Nicotine dependence, cigarettes, uncomplicated
CPT/HCPCS: 12345; 36415; 71045; 80053; 81001; 83605; 83690; 83880; 84145; 84484; 85025; 85378; 85610; 86140; 87040; 87086; 87205; 87426; 93005; 96365; 96375; 99283; 99285; J0131; J0692; J7030